=== PATIENT | female | born 1955 | race Two or more races ===

== ENCOUNTER 2020-05-20 10:18 | Outpatient (REF) | payer MEDICARE, MEDICAID, SELFPAY ==
--- NOTE | 2020-05-20 | MM_ITS ---
EXAMINATION: MM SCREENING DIGITAL BREAST TOMOSYNTHESIS, BILATERAL CLINICAL INFORMATION: Screening. Asymptomatic. The lifetime risk of breast cancer based on the Tyrer-Cuzick Model is 6%. COMPARISON: Mammography: 05/15/2019, 03/05/2018, 01/05/2017, 09/02/2015 TECHNIQUE: Digital breast tomosynthesis is performed in both the craniocaudal and mediolateral oblique views along with computer-aided detection (CAD). Synthesized 2D images are generated from the tomosynthesis. Additional left CC view is provided. FINDINGS: There are scattered areas of fibroglandular density (ACR BI-RADS breast composition Category b). Breast tissue composition borders on heterogeneously dense. There is fibronodular parenchymal pattern similar to prior studies. No developing density. No significant mass or architectural abnormality. There are benign-appearing round and coarse calcifications in the bilateral upper outer quadrants, more numerous on left. IMPRESSION: No significant changes from prior studies. ASSESSMENT: BI-RADS 2: Benign RECOMMENDATION: Routine annual mammography screening. This patient's information was entered into a reminder system with a target due date for their next mammogram.
--- NOTE | 2020-05-20 | MM_ITS ---
EXAMINATION: BONE DENSITOMETRY CLINICAL INDICATION: Osteopenia. COMPARISON: Previous BD dated 03/05/2018 and baseline BD dated 06/01/2015. TECHNIQUE: Using a [employer] DXA System (software version: 13.1) manufactured by [employer], dual-energy x-ray absorptiometry was performed of the lumbar spine and left hip. The images are of good technical quality. Summary results are attached. FINDINGS: AP SPINE L1-L4: Current: BMD 0.932 g/cm2, Z-score -0.5, T-score -2.1, osteopenia, 5.8% decrease from previous, 4.5% increase from baseline (<5% change is not significant). Prior: BMD 0.989 g/cm2. Baseline: BMD 0.892 g/cm2. LEFT FEMUR, NECK: Current: BMD 0.760 g/cm2, Z-score -0.6, T-score -2.0, osteopenia. Prior: BMD 0.768 g/cm2. Baseline: BMD 0.765 g/cm2. LEFT FEMUR, TOTAL: Current: BMD 0.865 g/cm2, Z-score 0.0, T-score -1.1, osteopenia, 2.7% decrease from previous, 0.6% decrease from baseline (<5% change is not significant). Prior: BMD 0.889 g/cm2. Baseline: BMD 0.870 g/cm2. IDENTIFIED RISK FACTORS: Menopause. HISTORY OF FRACTURE: None listed. MEDICATIONS: Vitamin D. IMPRESSION: 1. DIAGNOSIS: Osteopenia based on the lowest T-score value of -2.1 in the lumbar spine applying World Health Organization criteria. 2. 10-YEAR FRACTURE RISK PREDICTION, FRAX: Major osteoporotic fracture (clinical spine, forearm, hip or shoulder) 5.9%. Hip fracture 0.9%. 3. Treatment Recommendations: NOF guidelines recommend consideration for treatment in postmenopausal women and men age 50 and older presenting with the following: -A hip or vertebral (clinical or morphometric) fracture. -T-score less than or equal to -2.5 at the femoral neck or spine after appropriate evaluation to exclude secondary causes. -Low bone mass at the hip or spine and a 10-year fracture probability by FRAX of greater than or equal to 3% for hip fracture or greater than or equal to 20% for major osteoporotic fracture based on the [place] adapted WHO algorithm. 4. Other Recommendations: All treatment decisions require clinical judgment and consideration of individual patient factors, including patient preferences, comorbidities, previous drug use, risk factors not captured in the FRAX model (e.g. frailty, falls, vitamin D deficiency, increased bone turnover, interval significant decline in bone density) and possible under or overestimation of fracture risk by FRAX. Additional medical evaluation for secondary cause of low bone mineral density may be appropriate. FUTURE SCAN RECOMMENDATION: People with diagnosed cases of osteoporosis or at high risk for fracture should have regular bone mineral density tests. For patients eligible for Medicare, routine testing is allowed once every 2 years. The testing frequency can be increased to one year for patients who have rapidly progressing disease, those who are receiving or discontinuing medical therapy to restore bone mass, or have additional risk factors.
== END 2020-05-20 10:19 | disposition home or self-care (01) ==
LOC: HO.MAMMO 10:18
PROVIDERS: PCP Internal Medicine; Visit Provider Internal Medicine
DX: Z12.31 Encounter for screening mammogram for malignant neoplasm of breast (principal); Z13.820 Encounter for screening for osteoporosis; M85.852 Other specified disorders of bone density and structure, left thigh; Z78.0 Asymptomatic menopausal state
CPT/HCPCS: 77063; 77067; 77080; 78014

== ENCOUNTER 2020-10-01 08:41 | Outpatient (REF) | payer MEDICARE, MEDICAID, SELFPAY ==
[2020-10-01 11:46] LABS: Alanine Aminotransferase 35 U/L (0-31); Anion Gap 14 (12-20); Aspartate Amino Transferase 26 U/L (5-31); Blood Urea Nitrogen 17 mg/dL (9-16); Calcium 9.8 mg/dL (8.4-10.2); Carbon Dioxide 27 mmol/L (22-29); Chloride 105 mmol/L (96-108); Cholesterol 172 mg/dL; Estimated Glomerular Filt Rate > 60; Glucose Fasting 90 mg/dL (60-99); HDL Cholesterol 56 mg/dL; LDL Cholesterol Calculated 91 mg/dl; Potassium 4.9 mmol/L (3.3-5.1); Sodium 141 mmol/L (135-145); Triglycerides 126 mg/dL
[2020-10-01 12:11] LABS: Vitamin D 25-OH Total 70.5 ng/mL (>30)
== END 2020-10-01 08:42 | disposition home or self-care (01) ==
LOC: HO.HMGCLDS 08:41
PROVIDERS: PCP Internal Medicine; Visit Provider Internal Medicine
DX: E78.2 Mixed hyperlipidemia (principal); J45.20 Mild intermittent asthma, uncomplicated; M85.852 Other specified disorders of bone density and structure, left thigh
CPT/HCPCS: 36415; 80048; 80061; 82306; 84450; 84460

== ENCOUNTER 2021-04-01 08:37 | Outpatient (REF) | payer MEDICARE, MEDICAID, SELFPAY ==
[2021-04-01 12:21] LABS: Vitamin D 25-OH Total 66.8 ng/mL (>30)
[2021-04-01 12:22] LABS: Alanine Aminotransferase 29 U/L (0-31); Aspartate Amino Transferase 24 U/L (5-31); Cholesterol 168 mg/dL; HDL Cholesterol 58 mg/dL; LDL Cholesterol Calculated 95 mg/dl; Triglycerides 77 mg/dL
== END 2021-04-01 08:38 | disposition home or self-care (01) ==
LOC: HO.HMGCLDS 08:37
PROVIDERS: PCP Internal Medicine; Visit Provider Internal Medicine
DX: E78.2 Mixed hyperlipidemia (principal)
CPT/HCPCS: 36415; 80061; 82306; 84450; 84460

== ENCOUNTER 2022-07-19 09:10 | Outpatient (REF) | payer MEDICARE, MEDICAID, SELFPAY ==
[2022-07-19 11:19] LABS: MANUAL DIFF FLAG NO
[2022-07-19 11:33] LABS: Eosinophils Absolute Auto 0.2 X10*3/uL (0.0-0.4); Eosinophils Percent Auto 5.1 % (0-4); Hematocrit 43.5 % (37.0-47.0); Hemoglobin 13.8 g/dl (12.0-16.0); Lymphocytes Absolute Auto 2.3 X10*3/uL (1.2-4.9); Lymphocytes Percent Auto 56.6 % (20-40); Mean Corpuscular HGB Conc 31.7 g/dl (31.0-35.0); Mean Corpuscular Hemoglobin 29.2 pg (27.0-33.0); Mean Corpuscular Volume 92.2 fL (80.0-98.0); Mean Platelet Volume 9.4 fL (9.4-12.3); Monocytes Absolute Auto 0.3 X10*3/uL (0.1-1.2); Monocytes Percent Auto 6.1 % (2-11); Neutrophils Absolute Auto 1.3 x10*3/uL (2.0-8.3); Neutrophils Percent Auto 31.2 % (45-73); Platelet Count 365 X10*3/uL (160-400); Red Blood Count 4.72 X10*6/uL (4.20-5.50); Red Cell Distribution Width 13.5 % (11.0-16.0); White Blood Count 4.1 X10*3/uL (4.8-10.8)
[2022-07-19 12:54] LABS: Alanine Aminotransferase 33 U/L (0-31); Anion Gap 12 (12-20); Aspartate Amino Transferase 24 U/L (5-31); Blood Urea Nitrogen 15 mg/dL (9-16); Calcium 10.2 mg/dL (8.4-10.2); Carbon Dioxide 29 mmol/L (22-29); Chloride 107 mmol/L (96-108); Cholesterol 199 mg/dL; Estimated Glomerular Filt Rate > 60; Glucose Fasting 97 mg/dL (60-99); HDL Cholesterol 57 mg/dL; LDL Cholesterol Calculated 113 mg/dl; Sodium 143 mmol/L (135-145); Triglycerides 148 mg/dL; Vitamin D 25-OH Total 65.9 ng/mL (>30)
== END 2022-07-19 09:11 | disposition home or self-care (01) ==
LOC: HO.HMGCLDS 09:10
PROVIDERS: PCP Internal Medicine; Visit Provider Internal Medicine
DX: E78.2 Mixed hyperlipidemia (principal); K21.9 Gastro-esophageal reflux disease without esophagitis; N95.9 Unspecified menopausal and perimenopausal disorder; J45.20 Mild intermittent asthma, uncomplicated; Z78.0 Asymptomatic menopausal state
CPT/HCPCS: 36415; 80048; 80061; 82306; 84450; 84460; 85025

== ENCOUNTER 2022-08-22 08:27 | Outpatient (REF) | payer MEDICARE, MEDICAID, SELFPAY ==
--- NOTE | ~2022-08-22 | MM_ITS ---
EXAMINATION: MM SCREENING DIGITAL BREAST TOMOSYNTHESIS, BILATERAL CLINICAL INFORMATION: Screening. Asymptomatic. The lifetime risk of breast cancer based on the Tyrer-Cuzick Model is 4.3%. COMPARISON: Mammography: May 20, 2020 and studies dating back to September 02, 2015 TECHNIQUE: Digital breast tomosynthesis is performed in both the craniocaudal and mediolateral oblique views along with computer-aided detection (CAD). Synthesized 2D images are generated from the tomosynthesis. FINDINGS: The breasts are heterogeneously dense, which may obscure small masses (ACR BI-RADS breast composition Category c). There are no new significant masses, abnormal calcifications, or other abnormalities. There is again noted to be multiplicity and bilaterality of calcifications without aggressive change. MM/MM tomosynthesis screening BI IMPRESSION: No significant changes from prior exam. ASSESSMENT: BI-RADS 2: Benign RECOMMENDATION: Routine annual mammography screening. This patient's information was entered into a reminder system with a target due date for their next mammogram.
--- NOTE | ~2022-08-22 | MM_ITS ---
EXAMINATION: BONE DENSITOMETRY CLINICAL INDICATION: Screening. COMPARISON: Previous BD dated 05/20/2020 and baseline BD dated 06/01/2015. TECHNIQUE: Using a [employer] DXA System (software version: 13.1) manufactured by [employer], dual-energy x-ray absorptiometry was performed of the lumbar spine and left hip. The images are of good technical quality. Summary results are attached. FINDINGS: AP SPINE L1-L4: Current: BMD 0.980 g/cm2, Z-score -0.3, T-score -1.7, osteopenia, 5.2% increase from previous, 9.9% increase from baseline (<5% change is not significant). Prior: BMD 0.932 g/cm2. Baseline: BMD 0.892 g/cm2. LEFT FEMUR, NECK: Current: BMD 0.743 g/cm2, Z-score -0.7, T-score -2.1, osteopenia. Prior: BMD 0.760 g/cm2. Baseline: BMD 0.765 g/cm2. LEFT FEMUR, TOTAL: Current: BMD 0.865 g/cm2, Z-score 0.0, T-score -1.1, osteopenia, 0.0% change from previous, 0.6% decrease from baseline (<5% change is not significant). Prior: BMD 0.865 g/cm2. Baseline: BMD 0.870 g/cm2. IDENTIFIED RISK FACTORS: Menopause, anticonvulsant, secondary osteoporosis. HISTORY OF FRACTURE: None listed. MEDICATIONS: Multivitamin, vitamin D. MM/XR DEXA axial skeleton IMPRESSION: 1. DIAGNOSIS: Osteopenia based on the lowest T-score value of -2.1 in the femoral neck applying World Health Organization criteria. 2. 10-YEAR FRACTURE RISK PREDICTION, FRAX: Major osteoporotic fracture (clinical spine, forearm, hip or shoulder) 6.4%. Hip fracture 1.1%. 3. Treatment Recommendations: NOF guidelines recommend consideration for treatment in postmenopausal women and men age 50 and older presenting with the following: -A hip or vertebral (clinical or morphometric) fracture. -T-score less than or equal to -2.5 at the femoral neck or spine after appropriate evaluation to exclude secondary causes. -Low bone mass at the hip or spine and a 10-year fracture probability by FRAX of greater than or equal to 3% for hip fracture or greater than or equal to 20% for major osteoporotic fracture based on the [place] adapted WHO algorithm. 4. Other Recommendations: All treatment decisions require clinical judgment and consideration of individual patient factors, including patient preferences, comorbidities, previous drug use, risk factors not captured in the FRAX model (e.g. frailty, falls, vitamin D deficiency, increased bone turnover, interval significant decline in bone density) and possible under or overestimation of fracture risk by FRAX. Additional medical evaluation for secondary cause of low bone mineral density may be appropriate. FUTURE SCAN RECOMMENDATION: People with diagnosed cases of osteoporosis or at high risk for fracture should have regular bone mineral density tests. For patients eligible for Medicare, routine testing is allowed once every 2 years. The testing frequency can be increased to one year for patients who have rapidly progressing disease, those who are receiving or discontinuing medical therapy to restore bone mass, or have additional risk factors.
== END 2022-08-22 08:28 | disposition home or self-care (01) ==
LOC: HO.MAMMO 08:27
PROVIDERS: PCP Internal Medicine; Visit Provider Internal Medicine
DX: Z12.31 Encounter for screening mammogram for malignant neoplasm of breast (principal); Z13.820 Encounter for screening for osteoporosis; Z78.0 Asymptomatic menopausal state; M85.89 Other specified disorders of bone density and structure, multiple sites
CPT/HCPCS: 77063; 77067; 77080

== ENCOUNTER 2023-01-16 09:11 | Outpatient (REF) | payer MEDICARE, MEDICAID, SELFPAY ==
[2023-01-16 11:21] LABS: MANUAL DIFF FLAG NO
[2023-01-16 11:39] LABS: Basophils Absolute Auto 0.1 X10*3/uL (0.0-0.2); Basophils Percent Auto 1.7 % (0-2); Eosinophils Absolute Auto 0.3 X10*3/uL (0.0-0.4); Eosinophils Percent Auto 6.3 % (0-4); Hematocrit 41.3 % (37.0-47.0); Hemoglobin 13.5 g/dl (12.0-16.0); Imm Gran Abs Auto 0.01 X10*3/uL (0.00-0.03); Imm Gran Pct Auto 0.2 % (0.0-0.4); Lymphocytes Absolute Auto 2.4 X10*3/uL (1.2-4.9); Lymphocytes Percent Auto 57.4 % (20-40); Mean Corpuscular HGB Conc 32.7 g/dl (31.0-35.0); Mean Corpuscular Hemoglobin 29.6 pg (27.0-33.0); Mean Corpuscular Volume 90.6 fL (80.0-98.0); Mean Platelet Volume 9.7 fL (9.4-12.3); Monocytes Absolute Auto 0.3 X10*3/uL (0.1-1.2); Monocytes Percent Auto 6.8 % (2-11); Neutrophils Absolute Auto 1.1 x10*3/uL (2.0-8.3); Neutrophils Percent Auto 27.6 % (45-73); Platelet Count 382 X10*3/uL (160-400); Red Blood Count 4.56 X10*6/uL (4.20-5.50); Red Cell Distribution Width 13.2 % (11.0-16.0); White Blood Count 4.1 X10*3/uL (4.8-10.8)
[2023-01-16 12:06] LABS: Alanine Aminotransferase 28 U/L (0-31); Aspartate Amino Transferase 25 U/L (5-31); Cholesterol 161 mg/dL; HDL Cholesterol 59 mg/dL; LDL Cholesterol Calculated 86 mg/dl; Triglycerides 81 mg/dL
[2023-01-16 12:24] LABS: Vitamin D 25-OH Total 72.1 ng/mL (>30)
== END 2023-01-16 09:12 | disposition home or self-care (01) ==
LOC: HO.HMGCLDS 09:11
PROVIDERS: PCP Internal Medicine; Visit Provider Internal Medicine
DX: K21.9 Gastro-esophageal reflux disease without esophagitis (principal); N95.9 Unspecified menopausal and perimenopausal disorder; M85.89 Other specified disorders of bone density and structure, multiple sites; E78.2 Mixed hyperlipidemia
CPT/HCPCS: 36415; 80061; 82306; 84450; 84460; 85025

== ENCOUNTER 2023-07-10 08:39 | Outpatient (REF) | payer MEDICARE, MEDICAID, SELFPAY ==
[2023-07-10 12:16] LABS: Vitamin D 25-OH Total 93.7 ng/mL (>30)
[2023-07-10 12:19] LABS: Alanine Aminotransferase 28 U/L (0-31); Aspartate Amino Transferase 26 U/L (5-31); Cholesterol 165 mg/dL (<200); Glucose Fasting 94 mg/dL (60-99); HDL Cholesterol 54 mg/dL (>40); LDL Cholesterol Calculated 87 mg/dL (<100); Triglycerides 124 mg/dL (<150)
== END 2023-07-10 08:40 | disposition home or self-care (01) ==
LOC: HO.HMGCLDS 08:39
PROVIDERS: PCP Internal Medicine; Visit Provider Internal Medicine
DX: M85.89 Other specified disorders of bone density and structure, multiple sites (principal); E78.2 Mixed hyperlipidemia
CPT/HCPCS: 36415; 80061; 82306; 82947; 84450; 84460

== ENCOUNTER 2023-07-12 13:27 | Outpatient (AMB) | payer MEDICARE, MEDICAID, SELFPAY ==
--- NOTE | 2023-07-12 13:38 | MHC.PC.OV ---
Vital Signs 07/12/23 13:40 Height 5 ft Weight 157 lb 4 oz BMI 30.7 BP 138/86 Blood Pressure Location Lt brachial Position Sitting Pulse 63 Pulse Source Pulse Oximeter Pulse Oximetry (%) 99 Oxygen Delivery Method Room Air Intake Visit Reasons: 5M Follow up on lipids Intake Note: Pt is here to follow up for her lab results Allergies morphine Allergy (Unknown, Verified 07/12/23 13:43) hives enviromental allergies dust mi Allergy (Unknown, Uncoded 07/12/23 13:48) anaphylaxis enviromental:dust mites and tr Allergy (Unknown, Uncoded 07/12/23 13:43) anaphylaxis Medication List - Last Reconciled 07/12/23 by Tosha Valdez MD albuterol sulfate 90 mcg/actuation (Ventolin HFA) 1 inh inhalation QID PRN atorvastatin 10 mg PO DAILY diclofenac sodium 1% 2 grams transdermal BID PRN epinephrine IM fluticasone propionate 50 mcg/actuation intranasal milnacipran mg PO montelukast mg PO omeprazole mg PO oxybutynin chloride ER mg PO prochlorperazine maleate mg PO Tobacco use date assessed: 07/12/23 Fall risk assessment: No Falls in past year Last assessed Fall Risk: 07/12/23 Dental Screening Dental Screen Date: 07/12/23 Did you have a dental visit in the last 12 months?: Yes Did you have a dental problem in the last 6 months where you did not have access to dental care?: No Was dental information given to patient?: Patient has dentist HPI 5M Follow up on lipids HPI Details [age]-year-old lady with dyslipidemia, here today for her follow-up. She is currently taking atorvastatin 10 mg once a day, and has been compliant with following a low-cholesterol diet and staying active. Her recent fasting labs showed lipids within normal limits, as shown below Triglyceride 124 <150 mg/dL Desirable Triglyceride: less than 150 mg/dL Borderline High Triglyceride 150-199 mg/dL High Triglyceride: 200-499 mg/dL Very High Triglyceride: greater than or equal to 5OO mg/dL Cholesterol 165 <200 mg/dL Desirable Cholesterol: less than 200 mg/dL Borderline High Cholesterol: 200-239 mg/dL High Cholesterol: greater than 239 mg/dL LDL Calculated 87 <100 mg/dL Desirable LDL: less than 100 mg/dL Near Optimal/Above Optimal LDL: 110-129 mg/dL Borderline High LDL: 130-159 mg/dL High LDL: 160-189 mg/dL Very High LDL: greater than or equal to 190 mg/dL HDL 54 >40 mg/dL Desirable HDL: greater than 40 mg/dL [facility] Medical History Osteopenia of multiple sites Tubular adenoma of colon Lumbar disc herniation Mixed dyslipidemia Mild intermittent asthma GERD (gastroesophageal reflux disease) Surgical History History of surgery History of myomectomy History of hand surgery History of tubal ligation History of appendectomy Hx of cholecystectomy Family History Father No problems noted. Mother CVD (cardiovascular disease) Brother No problems noted. Daughter No problems noted. Daughter No problems noted. Sister Stroke Sister Alzheimer's disease Sister Diabetes mellitus Leukemia Sister No problems noted. Sister No problems noted. Sister No problems noted. Sister No problems noted. Social History Housing: House Alcohol intake: never Patient Tobacco Use Status: Never used Tobacco e-Cigarette/Vaping Use: Never Used Second Hand Smoke Exposure: No service: No Current occupational status: retired Cognitive needs: No Hearing needs: No Vision needs: Yes Questionnaire PHQ-9 Over the last 2 weeks, how often have you been bothered by any of the following problems? Depression Screening Interpretation: Negative Depression Screening Done: Yes Source: Developed by Drs. Zach Thurman, Akila Scott, Antony Miller and colleagues, with an educational temitope from [employer]. Thrive Questionnaire Date Thrive assessed: 01/18/23 JOANNE-7 AMB Questionnaire JOANNE-7 Date JOANNE - 7 assessed: 01/18/23 Source: Developed by Drs. Zach Thurman, Akila Scott, Antony Miller and colleagues, with an educational temitope from [employer]. Review of Systems Const Denies body aches, Denies fatigue, Denies fever(s), Denies headache(s) and Denies weakness ENT Denies dizziness, Denies headache(s), Denies nasal congestion, Denies nasal discharge and Denies sore throat Card Denies chest pain, Denies lightheadedness, Denies palpitations and Denies dyspnea Resp Denies chest congestion, Denies cough, Denies dyspnea and Denies wheezing GI Denies abdominal pain, Denies change in bowel habits and Denies heartburn Musc Reports no additional complaints Neuro Denies dizziness, Denies headache(s) and Denies weakness Endo Denies fatigue and Denies palpitations Aller/Immun Denies seasonal rhinorrhea and Denies wheezing Physical exam (Primary Care) Vital Signs: Last Vital Signs Pulse 63 07/12/23 13:40 BP 138/86 07/12/23 13:40 Pulse Ox 99 07/12/23 13:40 Oxygen Delivery Method Room Air 07/12/23 13:40 BMI result Body Mass Index 30.7 Tobacco/Smoking Status: Tobacco use Status Tobacco use date assessed 07/12/23 07/12/23 13:46 Patient Tobacco Use Status Never used Tobacco 07/12/23 13:39 e-Cigarette/Vaping Use Never Used 07/12/23 13:39 Depression Screening Interpretation: Negative Thrive Assessment: Date of Thrive Assessment Date Thrive assessed 01/18/23 07/12/23 13:39 Const General: cooperative, comfortable and no acute distress Orientation/consciousness: patient oriented x3 Limitations: no limitations Neck Neck: Yes full ROM, Yes no lymphadenopathy and Yes supple Resp Effort & Inspection: normal respiratory effort and able to speak in complete sentences Auscultation: clear to auscultation bilaterally Cardio Rate: regular rate Rhythm: regular rhythm Heart sounds: S1 normal heart sound present and S2 normal heart sound present GI Inspection: Yes normal to inspection Palpation (GI): Soft to palpation, nontender and no masses Auscultation: normal bowel sounds Neuro General: patient oriented x3, gait normal, tone normal, moves all extremities, Normal light touch and pain sensation and no focal motor deficits Cognition (Neuro): normal cognition Gait exam (Neuro): Normal gait present Motor exam (neuro): 5/5 motor strength present throughout Extrem General: Yes full ROM, Yes no joint enlargement, Yes no pedal edema, Yes no calf tenderness and Yes normal gait Results Reviewed Results Reviewed: ENTERED: 07/10/23[facility] SAFIA ELAM: ORDERED: Glu Fasting, AST, ALT, Lipid Panel, Vitamin D 25-OH Test Result Flag Reference Site FBS 94 60-99 mg/dL AST (GOT) 26 5-31 U/L ALT (GPT) 28 0-31 U/L Triglyceride 124 <150 mg/dL Desirable Triglyceride: less than 150 mg/dL Borderline High Triglyceride 150-199 mg/dL High Triglyceride: 200-499 mg/dL Very High Triglyceride: greater than or equal to 5OO mg/dL Cholesterol 165 <200 mg/dL Desirable Cholesterol: less than 200 mg/dL Borderline High Cholesterol: 200-239 mg/dL High Cholesterol: greater than 239 mg/dL LDL Calculated 87 <100 mg/dL Desirable LDL: less than 100 mg/dL Near Optimal/Above Optimal LDL: 110-129 mg/dL Borderline High LDL: 130-159 mg/dL High LDL: 160-189 mg/dL Very High LDL: greater than or equal to 190 mg/dL HDL 54 >40 mg/dL Desirable HDL: greater than 40 mg/dL Note: This HDL assay may give artificially low results in patients with liver disease. Vit D 25-OH Tot 93.7 >30 ng/mL Health Based Reference Values* < 20 ng/mL Deficient 20-30 ng/mL Insufficient > 30 ng/mL Sufficient Assessment and Plan Assessment & Plan (1) Mixed dyslipidemia: Code(s): E78.2 - Mixed hyperlipidemia Plan: Fasting lipid results reduced patient which are within normal limits. Will continue on atorvastatin 10 mg daily, and reinforced importance of following a low-cholesterol diet and getting regular exercise. Medications: New epinephrine (EpiPen 2-Demteris) 0.3 mg (0.3 mL) IM Q4H PRN 2 ea 1RF anaphylaxis Coding Level of Care Code Est Pt Level 3 (53284) Diagnoses Mixed dyslipidemia E78.2
[2023-07-12 13:40] VITALS: BP 138/86; PULSE 63; O2SAT 99; BMI 30.7
== END 2023-07-12 15:24 | disposition home or self-care (01) ==
LOC: HO.HMGC 13:27
PROVIDERS: PCP Internal Medicine; Visit Provider Internal Medicine
DX: E78.2 Mixed hyperlipidemia (principal)
CPT/HCPCS: 99213

== ENCOUNTER 2023-08-28 08:55 | Outpatient (REF) | payer MEDICARE, MEDICAID, SELFPAY ==
--- NOTE | ~2023-08-28 | MM_ITS ---
EXAMINATION: MM SCREENING DIGITAL BREAST TOMOSYNTHESIS, BILATERAL CLINICAL INFORMATION: Screening. Asymptomatic. COMPARISON: Mammography: This study is compared with prior exams dating back to 2018. TECHNIQUE: Digital breast tomosynthesis is performed in both the craniocaudal and mediolateral oblique views along with computer-aided detection (CAD). Synthesized 2D images are generated from the tomosynthesis. FINDINGS: There are scattered areas of fibroglandular density (ACR BI-RADS breast composition Category b). There are no significant masses, abnormal calcifications, or other abnormalities. There are unchanged, bilateral, coarse, benign calcifications in each breast. BI-RADS 2 MM/MM tomosynthesis screening BI IMPRESSION: No mammographic evidence of malignancy. ASSESSMENT: BI-RADS BI-RADS 2 - Benign Findings RECOMMENDATION: Routine annual mammography screening. 1 year F/U This examination should not preclude the clinical evaluation of a suspicious palpable abnormality. This patient's information was entered into a reminder system with a target due date for their next mammogram.
== END 2023-08-28 08:56 | disposition home or self-care (01) ==
LOC: HO.MAMMO 08:55
PROVIDERS: PCP Internal Medicine; Visit Provider Internal Medicine
DX: Z12.31 Encounter for screening mammogram for malignant neoplasm of breast (principal)
CPT/HCPCS: 77063; 77067

== ENCOUNTER → 2023-08-28 09:30 | Outpatient (BNV) | payer MEDICARE, MEDICAID, SELFPAY | PROVIDERS: PCP Internal Medicine; Visit Provider Radiology Diagnostic Radiology | DX: Z12.31 Encounter for screening mammogram for malignant neoplasm of breast (principal) | CPT/HCPCS: 77063; 77067 ==

== ENCOUNTER 2024-09-04 09:02 | Outpatient (REF) | payer MEDICARE, MEDICAID, SELFPAY | END 2024-09-04 09:03 | disposition home or self-care (01) | LOC: HO.MAMMO 09:02 | PROVIDERS: PCP Internal Medicine; Visit Provider Internal Medicine | DX: Z12.31 Encounter for screening mammogram for malignant neoplasm of breast (principal) | CPT/HCPCS: 77063; 77067 ==

== ENCOUNTER → 2024-09-04 09:30 | Outpatient (BNV) | payer MEDICARE, MEDICAID, SELFPAY | PROVIDERS: PCP Internal Medicine; Visit Provider Internal Medicine | DX: Z12.31 Encounter for screening mammogram for malignant neoplasm of breast (principal) | CPT/HCPCS: 77063; 77067 ==

== ENCOUNTER 2024-09-08 11:36 | Outpatient (AMB) | payer MEDICARE, MEDICAID, SELFPAY ==
--- NOTE | 2024-09-08 11:30 | A.OFFPC_ITS ---
Vital Signs 09/08/24 11:41 Height 5 ft Weight 153 lb BMI 29.9 BP 120/90 H Blood Pressure Location Rt brachial Position Sitting Respiration 14 Pulse 73 Pulse Source Pulse Oximeter Temp 98.0 F Temp Source Oral Pulse Oximetry (%) 98 Oxygen Delivery Method Room Air Intake Visit Reasons: PE/Secondary covers PE Intake Note: Pt is here today for her PE: Last mammogram 09/04/24, bone density scan 08/22/22, colonoscopy 02/08/21 Allergies morphine Allergy (Unknown, Verified 09/08/24 11:52) hives enviromental allergies dust mi Allergy (Unknown, Uncoded 09/08/24 11:52) anaphylaxis enviromental:dust mites and tr Allergy (Unknown, Uncoded 09/08/24 11:52) anaphylaxis Medication List - Last Reconciled 09/08/24 by Tosha Valdez MD albuterol sulfate 90 mcg/actuation (Ventolin HFA) 1 inh inhalation QID PRN atorvastatin 10 mg PO DAILY diclofenac sodium 1% 2 grams transdermal BID PRN epinephrine (EpiPen 2-Demetris) 0.3 mg (0.3 mL) IM Q4H PRN fluticasone propionate 50 mcg/actuation intranasal milnacipran mg PO montelukast mg PO omeprazole mg PO oxybutynin chloride ER mg PO prochlorperazine maleate mg PO Tobacco use date assessed: 09/08/24 Fall risk assessment: 1 Fall in past year Last assessed Fall Risk: 09/08/24 Dental Screening Dental Screen Date: 09/08/24 Did you have a dental visit in the last 12 months?: Yes Did you have a dental problem in the last 6 months where you did not have access to dental care?: No Was dental information given to patient?: Patient has dentist HPI PE/Secondary covers PE HPI Details 68-year-old lady here today for her phys ical exam. She is up-to-date with her breast cancer screening, with last mammogram done 09/04/2024 with results still pending. A bone density scan was done 08/22/2022 which showed osteopenia in lumbar spine, left femoral neck and left femur, with improvement noted. A screening colonoscopy was done 02/08/[address] Jones with diverticulosis seen, repeat colonoscopy due again in 2026 due to history of colonic polyps She has dyslipidemia currently on atorvastatin 10 mg daily, due for recheck on her lipids. Mild intermittent asthma controlled with albuterol inhaler as needed and takes montelukast 10 mg daily. Heartburn symptoms controlled with omeprazole Has urinary stress incontinence, takes oxybutynin chloride She was being seen by Dr. Waldemar perez She was being seen by Dr. Mann, who has been treating her for fibromyalgia a nd headaches , controlled with Savella Has tried Lyrica and Cymbalta in the past, Flexeril was not covered but baclofen has been helping. Has had physical therapy which helped , but was unable to complete, uses hot packs on her neck which helps slightly. Continues to get headaches left greater than right , mainly in her temples and top of the head, sometimes accompanied by nausea and dizziness. She is requesting to be referred to a new neurologist as her previous 1 has retired FOR[facility]LY [facility] Medical History (Updated 09/14/24 @ 21:55 by Tosha Valdez MD) Environmental and seasonal allergies Headache Myalgia Osteopenia of multiple sites Tubular adenoma of colon Lumbar disc herniation Mixed dyslipidemia Mild intermittent asthma GERD (gastroesophageal reflux disease) Surgical History History of surgery History of myomectomy History of hand surgery History of tubal ligation History of appendectomy Hx of cholecystectomy Family History Father No problems noted. Mother CVD (cardiovascular disease) Brother No problems noted. Daughter No problems noted. Daughter No problems noted. Sister Stroke Sister Alzheimer's disease Sister Diabetes mellitus Leukemia Sister No problems noted. Sister No problems noted. Sister No problems noted. Sister No problems noted. Social History Housing: House Alcohol intake: never Patient Tobacco Use Status: Never used Tobacco e-Cigarette/Vaping Use: Never Used Second Hand Smoke Exposure: No service: No Current occupational status: retired Cognitive needs: No Hearing needs: No Vision needs: Yes Questionnaire PHQ-9 Over the last 2 weeks, how often have you been bothered by any of the following problems? 1. Little interest or pleasure in doing things: not at all 2. Feeling down, depressed, or hopeless: not at all 3. Trouble falling or staying asleep, or sleeping too much: not at all 4. Feeling tired or having little energy: not at all 5. Poor appetite or overeating: not at all 6. Feeling bad about yourself - or that you are a failure or have let yourself or your family down: not at all 7. Trouble concentrating on things, such as reading the newspaper or watching television: not at all 8. Moving or speaking so slowly that other people could have noticed. Or the opposite - being so fidgety or restless that you have been moving around a lot more than usual: not at all 9. Thoughts that you would be better off or of hurting yourself in some way: not at all Total score: 0 Depression Screening Interpretation: Negative Depression Screening Done: Yes 62600 - PHQ-9 Billing: Yes Source: Developed by Drs. Zach Thurman, Akila Scott, Antony Miller and colleagues, with an educational temitope from [employer]. Thrive Questionnaire Date Thrive assessed: 09/08/24 I am a: Patient What is your living situation today?: I have a steady place to live Within the past 12 months, did the food you bought not last and you didn't have the money to get more?: Never true Within the past 12 months, did you worry whether your food would run out before you got money to buy more?: Never true Do you have trouble paying for medicines?: No Do you have trouble getting transportation to medical appointments?: No Do you have trouble paying your heating and electricity bill?: No Do you have trouble taking care of your child, family member or friend?: No Do you have trouble with day-to-day activities such as bathing, preparing meals, shopping, managing finances, etc.?: No Are you currently unemployed and looking for a job?: No Are you interested in more education?: No THRIVE Score: 0 JOANNE-7 AMB Questionnaire JOANNE-7 Date JOANNE - 7 assessed: 09/08/24 Feeling nervous, anxious, or on edge: 0 = Not at all Not being able to stop or control worryin = Not at all Worrying too much about different things: 0 = Not at all Trouble relaxin = Not at all Being so restless that it is hard to sit still: 0 = Not at all Becoming easily annoyed or irritable: 0 = Not at all Feeling afraid as if something awful might happen: 0 = Not at all Total JOANNE-7 score (0-4 normal; 5-9 mild; 10-14 moderate; 15-21 severe): 0 Source: Developed by Drs. Zach Thurman, Akila Scott, Antony Miller and colleagues, with an educational temitope from [employer]. JOANNE-7 Assessment Billing JOANNE-7 Assessment Tool: JOANNE-7 Assessment 46988 Review of Systems Const Denies body aches, Denies fatigue, Denies fever(s) and Denies weakness Eyes Details: overdue for eye exam ENT Details: dental prophylaxis every 6 months Denies nasal congestion, Denies nasal discharge and Denies sore throat Card Denies chest pain, Denies syncope, Denies lightheadedness, Denies palpitations and Denies dyspnea Resp Denies chest congestion, Denies cough, Denies dyspnea and Denies wheezing GI Denies abdominal pain, Denies change in bowel habits and Denies heartburn Reports no additional complaints Musc Reports no additional complaints Skin/Breast Denies breast pain, Denies breast mass, Denies lesions and Denies rash Neuro Reports as per HPI, Denies syncope, Denies seizure-like activity and Denies weakness Psych Reports no additional complaints Endo Denies fatigue and Denies palpitations Osvaldo/Lymph Reports no additional complaints Aller/Immun Denies seasonal rhinorrhea and Denies wheezing Physical exam (Primary Care) Vital Signs: Last Vital Signs Temp 98.0 F 09/08/24 11:41 Pulse 73 09/08/24 11:41 Resp 14 09/08/24 11:41 BP 120/90 H 09/08/24 11:41 Pulse Ox 98 09/08/24 11:41 Oxygen Delivery Method Room Air 09/08/24 11:41 BMI result Body Mass Index 29.9 Tobacco/Smoking Status: Tobacco use Status Tobacco use date assessed 09/08/24 09/08/24 11:32 Patient Tobacco Use Status Never used Tobacco 09/08/24 11:32 e-Cigarette/Vaping Use Never Used 09/08/24 11:32 Depression Screening Interpretation: Negative Thrive Assessment: Date of Thrive Assessment Date Thrive assessed 09/08/24 09/08/24 11:32 Advance Care Planning discussion: Completed/Scanned Date of discussion: 09/08/24 Who was present: Patient Forms completed: Health Care Proxy and MOLST Time spent: 16-45 minutes Actual minutes spent: 3 Const General: cooperative, comfortable and no acute distress Orientation/consciousness: patient oriented x3 Limitations: no limitations HENMT Head: Yes normocephalic Ears: external ears normal General nose exam: Normal external nose present Face and sinus: Yes face symmetric Mouth: Normal oral and palatal mucosa present and moist mucous membranes Eyes General: appearance normal, both eyes and all related structures Neck Neck: Yes full ROM, Yes no lymphadenopathy and Yes supple Chest Breast/axilla palpation: normal palpation of the breasts Resp Effort & Inspection: normal respiratory effort and able to speak in complete sentences Auscultation: clear to auscultation bilaterally Cardio Rate: regular rate Rhythm: regular rhythm Heart sounds: S1 normal heart sound present and S2 normal heart sound present GI Inspection: Yes normal to inspection Palpation (GI): Soft to palpation and nontender Auscultation: normal bowel sounds General: Yes no CVA tenderness Back/Spine/Pelvis Back: no CVA tenderness and No back tenderness Skin General skin exam: no rashes or lesions noted Neuro General: patient oriented x3, gait normal, tone normal, moves all extremities, Normal light touch and pain sensation and no focal motor deficits Cognition (Neuro): normal cognition Gait exam (Neuro): Normal gait present Motor exam (neuro): 5/5 motor strength present throughout Extrem General: Yes full ROM, Yes no joint enlargement, Yes no pedal edema, Yes no calf tenderness and Yes normal gait Psych Appearance: grossly normal and well kempt Mental Status: mental status grossly normal Speech and movement: Normal speech and movement present Affect: normal affect Coding Level of Care Code Est Pt Prev Care >65y(58679) Diagnoses Annual visit for general adult medical examination with abnormal findings Z00.01 Osteopenia of multiple sites M85.89 GERD (gastroesophageal reflux disease) K21.9 Mild intermittent asthma J45.20 Mixed dyslipidemia E78.2 Encounter for counseling regarding advance directives Z71.89 Myalgia M79.10 Headache R51.9 Headache type: unspecified Additional Codes PHQ-9 - 13688 - PHQ-9 Billing: Yes ([id number]) JOANNE-7 Assessment Billing - JOANNE-7 Assessment Tool: JOANNE-7 Assessment 85345 ([id number]) Vital Signs *Quality* - Advance Care Planning discussion: Completed/Scanned ([id number]) Vital Signs *Quality* - Time spent: 16-45 minutes ([id number]) Assessment & Plan Assessment & Plan (1) Annual visit for general adult medical examination with abnormal findings: Code(s): Z00.01 - Encounter for general adult medical examination with abnormal findings Plan: Will check appropriate labs. Recommended dental visit every 6 months and regular eye exams, at least every 2 years. Take adequate calcium in diet and vitamin-D 3 at 2000 IU per cap once a day, in addition to weight-bearing exercises to help maintain good muscle tone and weight control. Instructed to do self-breast exam, and continue to get yearly mammogram, bone density scan ordered today. Due for repeat colonoscopy again in [address] Jones. Up-to-date with her vaccination but does not want to get a COVID booster. (2) Osteopenia of multiple sites: Code(s): M85.89 - Other specified disorders of bone density and structure, multiple sites Category: Medical Plan: Bone density scan ordered, continue taking vitamin-D 3 iftb-elf-pmdoxya 2000 units daily and encouraged to do regular weight-bearing exercises. (3) GERD (gastroesophageal reflux disease): Code(s): K21.9 - Gastro-esophageal reflux disease without esophagitis Category: Medical Plan: Sees Dr. Jones currently taking omeprazole (4) Mild intermittent asthma: Code(s): J45.20 - Mild intermittent asthma, uncomplicated Category: Medical Plan: Currently being followed by DR Briseno, uses albuterol inhaler as needed and is currently on montelukast 10 mg daily (5) Mixed dyslipidemia: Code(s): E78.2 - Mixed hyperlipidemia Category: Medical Plan: Fasting lipid panel ordered, continue atorvastatin 10 mg daily (6) Encounter for counseling regarding advance directives: Code(s): Z71.89 - Other specified counseling Plan: Initiated the conversation about Advanced Directives. Advanced Directives help patients prepare for current and future decisions about their medical treatment and place of care. Discussed with patient that it is a process where a patients current condition and prognosis are reviewed, their wishes for information regarding their illness are elicited, and likely medical dilemmas are presented and options discussed. MOLST and healthcare proxy form completed. These forms can be amended as needed, reviewed yearly and make changes as needed (7) Myalgia: Code(s): M79.10 - Myalgia, unspecified site Category: Medical Plan: Requesting referral to see a new neurologist, currently on Savella (8) Headache: Code(s): R51.9 - Headache, unspecified Category: Medical Qualifiers: Headache type: unspecified Plan: Patient requesting referral to a new neurologist as her previous one, Dr. Mann has retired. Currently on Savella/milnaciparan Orders: Orders Vitamin D 25-OH Total 09/08/24 E78.2 - Mixed hyperlipidemia, K21.9 - Gastro- esophageal reflux disease without esophagitis, M85.89 - Other specified disorders of bone density and structure, multiple sites, Z00.01 - Encounter for general adult medical examination with abnormal findings, Z71.89 - Other specified counseling Lipid Panel 09/08/24 E78.2 - Mixed hyperlipidemia, K21.9 - Gastro-esophageal reflux disease without esophagitis, M85.89 - Other specified disorders of bone density and structure, multiple sites, Z00.01 - Encounter for general adult medical examination with abnormal findings, Z71.89 - Other specified counseling Basic Metabolic Panel Fasting 09/08/24 E78.2 - Mixed hyperlipidemia, K21.9 - Gastro-esophageal reflux disease without esophagitis, M85.89 - Other specified disorders of bone density and structure, multiple sites, Z00.01 - Encounter for general adult medical examination with abnormal findings, Z71.89 - Other specified counseling Aspartate Amino Transferase 09/08/24 E78.2 - Mixed hyperlipidemia, K21.9 - Gastro-esophageal reflux disease without esophagitis, M85.89 - Other specified disorders of bone density and structure, multiple sites, Z00.01 - Encounter for general adult medical examination with abnormal findings, Z71.89 - Other specified counseling Alanine Aminotransferase 09/08/24 E78.2 - Mixed hyperlipidemia, K21.9 - Gastro- esophageal reflux disease without esophagitis, M85.89 - Other specified disorders of bone density and structure, multiple sites, Z00.01 - Encounter for general adult medical examination with abnormal findings, Z71.89 - Other specified counseling XR DEXA axial skeleton 09/08/24 M85.89 - Other specified disorders of bone density and structure, multiple sites Referrals Neurology Referral M79.10 - Myalgia, unspecified site, R51.9 - Headache, unspecified Medications: Refilled albuterol sulfate 90 mcg/actuation (Ventolin HFA) 1 inh inhalation QID PRN 8.5 grams 1RF shortness of breath or wheezing atorvastatin 10 mg PO DAILY 90 tabs 1RF epinephrine (EpiPen 2-Demetris) 0.3 mg (0.3 mL) IM Q4H PRN 2 ea 1RF anaphylaxis
[2024-09-08 11:41] VITALS: BP 120/90; PULSE 73; RESP 14; TEMP 36.7; O2SAT 98; BMI 29.9
== END 2024-09-08 12:59 | disposition home or self-care (01) ==
PROVIDERS: PCP Internal Medicine; Visit Provider Internal Medicine
DX: Z00.00 Encounter for general adult medical examination without abnormal findings (principal); M85.89 Other specified disorders of bone density and structure, multiple sites; Z68.29 Body mass index [BMI] 29.0-29.9, adult; K21.9 Gastro-esophageal reflux disease without esophagitis; J45.20 Mild intermittent asthma, uncomplicated; E78.2 Mixed hyperlipidemia; Z71.89 Other specified counseling; M79.10 Myalgia, unspecified site; R51.9 Headache, unspecified

== ENCOUNTER → 2024-09-08 11:36 | Outpatient (BNVA) | payer MEDICARE, MEDICAID, SELFPAY | PROVIDERS: PCP Internal Medicine; Visit Provider Internal Medicine | DX: Z00.01 Encounter for general adult medical examination with abnormal findings (principal); M79.7 Fibromyalgia; M85.89 Other specified disorders of bone density and structure, multiple sites; K21.9 Gastro-esophageal reflux disease without esophagitis; J45.20 Mild intermittent asthma, uncomplicated; E78.2 Mixed hyperlipidemia; M79.10 Myalgia, unspecified site; R51.9 Headache, unspecified; Z71.89 Other specified counseling | CPT/HCPCS: 96127; 99397 ==

== ENCOUNTER 2024-09-24 11:16 | Outpatient (REF) | payer MEDICARE, MEDICAID, SELFPAY ==
--- NOTE | ~2024-09-24 | MM_ITS ---
EXAMINATION: MM DIAGNOSTIC DIGITAL MAMMOGRAPHY, LEFT CLINICAL INFORMATION: Call back from screening for increased left breast calcifications. COMPARISON: Mammography: Comparison is made with available prior examinations. TECHNIQUE: Digital mammography is performed in craniocaudal and mediolateral oblique views along with computer-aided detection (CAD). FINDINGS: There are scattered areas of fibroglandular density (ACR BI-RADS breast composition Category b). Grouped coarse heterogeneous calcifications in the upper outer breast and lower outer breast are increased from priors. No suspicious masses or other abnormal findings. Results are discussed with the patient at time of visit. MM/MM added views LT IMPRESSION: Grouped coarse heterogeneous calcifications in the upper outer quadrant and lower outer quadrant increased from priors. Recommend stereotactic core needle biopsy at this time for confirmation. The findings and recommendations were discussed with the patient the procedure was scheduled. Additional central to lower outer calcifications if not biopsied at the same time as the upper outer calcifications, recommendations will be made pending pathology of the above calcifications. ASSESSMENT: BI-RADS BI-RADS 4 - Suspicious finding RECOMMENDATION: Biopsy recommended This patient's information was entered into a reminder system with a target due date for their next mammogram. Electronically signed by: Stefani Price DO 09/24/2024 12:10 PM ELANA
== END 2024-09-24 11:17 | disposition home or self-care (01) ==
LOC: HO.MAMMO 11:16
PROVIDERS: PCP Internal Medicine; Visit Provider Internal Medicine
DX: R92.1 Mammographic calcification found on diagnostic imaging of breast (principal)
CPT/HCPCS: 77065

== ENCOUNTER → 2024-09-24 11:30 | Outpatient (BNV) | payer MEDICARE, MEDICAID, SELFPAY | PROVIDERS: PCP Internal Medicine; Visit Provider Internal Medicine | DX: R92.1 Mammographic calcification found on diagnostic imaging of breast (principal) | CPT/HCPCS: 77065 ==

== ENCOUNTER 2024-10-29 08:20 | Outpatient (AMB) | payer MEDICARE, MEDICAID, SELFPAY ==
--- NOTE | 2024-10-29 08:28 | A.OFFVIS_ITS ---
Vital Signs 10/29/24 08:37 Height 5 ft Weight 142 lb 13.753 oz BMI 27.9 Intake Visit Reasons: Stereo Bx LT breast UOQ cals Intake Note: This patient presents for Stereo Biopsy consult for Left breast upper outer quadrant calcifications. Pt c/o; Bx booked 10/29/2024 @10am, reports she had one episode of nipple discharge in the past, reports occasional throbbing pain. 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 She had a mammogram for screening last August, and this showed grouped coarse heterogenous calcifications in the upper outer quadrant and lower outer quadrant which have increased from her previous mammograms. These were seen again on her targeted diagnostic mammogram last month. A stereotactic biopsy was therefore recommended. Her menarche was at age of 11. She had to pregnancies. Her 1st was age of 19. She had menopause in her 50s. She denies knowledge of any breast cancer in her family. FOR[facility]LY [facility] Medical History (Updated 10/28/24 @ 11:38 by Nagi Alas MD) Breast calcification, left Environmental and seasonal allergies Headache Myalgia Osteopenia of multiple sites Tubular adenoma of colon Lumbar disc herniation Mixed dyslipidemia Mild intermittent asthma GERD (gastroesophageal reflux disease) Surgical History History of surgery History of myomectomy History of hand surgery History of tubal ligation History of appendectomy Hx of cholecystectomy Family History Father No problems noted. Mother CVD (cardiovascular disease) Brother No problems noted. Daughter No problems noted. Daughter No problems noted. Sister Stroke Sister Alzheimer's disease Sister Diabetes mellitus Leukemia Sister No problems noted. Sister No problems noted. Sister No problems noted. Sister No problems noted. Social History Housing: House Alcohol intake: never Patient Tobacco Use Status: Never used Tobacco e-Cigarette/Vaping Use: Never Used Second Hand Smoke Exposure: No service: No Current occupational status: retired Cognitive needs: No Hearing needs: No Vision needs: Yes Female Reproductive History Menstrual Age of Menarche: 11 Total pregnancies: 2 Review of Systems Const Denies chills and Denies fever(s) Card Denies chest pain, Denies dyspnea and Denies dyspnea on exertion Resp Denies cough, Denies dyspnea and Denies dyspnea on exertion GI Denies hematochezia and Denies change in bowel habits Denies hematuria Musc Denies back pain and Denies limited range of motion Neuro Denies focal weakness and Denies convulsions Psych Denies depression and Denies mood swings Physical Exam Const General: comfortable and no acute distress Orientation/consciousness: patient oriented x3 Neck Neck: Yes no lymphadenopathy Chest Other: No palpable breast masses, no axillary lymphadenopathy, no nipple or skin changes Resp Auscultation: clear to auscultation bilaterally Cardio Rhythm: regular rhythm GI Palpation (GI): Soft to palpation, nontender and no guarding Neuro General: patient oriented x3 Assessment & Plan Assessment & Plan (1) Breast calcification, left: Code(s): R92.1 - Mammographic calcification found on diagnostic imaging of breast Category: Medical Plan: She has increasing calcifications on the left breast seen on her mammogram studies. A stereotactic biopsy was therefore recommended. I explained to her the technique of this procedure. I will see her again in the office next week to discuss the path report. Orders: Orders MM stereotactic biopsy LT 10/28/24 R92.1 - Mammographic calcification found on diagnostic imaging of breast Coding Level of Care Code New Pt Level 3 (85508) Diagnoses Breast calcification, left R92.1
[2024-10-29 08:37] VITALS: BMI 27.9
== END 2024-10-29 08:48 | disposition home or self-care (01) ==
LOC: HO.HGS 08:20
PROVIDERS: PCP Internal Medicine; Visit Provider Surgery
DX: R92.1 Mammographic calcification found on diagnostic imaging of breast (principal)
CPT/HCPCS: 99203

== ENCOUNTER 2024-10-29 08:54 | Outpatient (REF) | payer MEDICARE, MEDICAID, SELFPAY ==
--- NOTE | ~2024-10-29 | MM_ITS ---
EXAMINATION: STEREOTACTICALLY-GUIDED LEFT BREAST BIOPSY CLINICAL INFORMATION: Increasing grouped calcifications in the lower outer and upper outer left breast. COMPARISON: priors on PACS INFORMED CONSENT: After the details of the procedure, as well as the risks (including, but not limited to, bleeding, hematoma formation, and infection), benefits and alternatives (including doing nothing, short-interval follow up, and surgery) to the procedure were explained to the patient in detail and all of her questions were answered, informed written consent was obtained. TECHNIQUE/FINDINGS: A timeout was performed. The lesion intended for biopsy was identified stereotactically and targeted. The skin of the left breast was then cleansed with sterile solution. Using stereotactic guidance, aseptic technique, and 1% lidocaine with and without epinephrine for local anesthesia, a total of 12 cores were obtained through the targeted area with a 9-gauge vacuum-assisted Eviva core biopsy device from a superior approach. Specimen radiography reveals the targeted calcifications in the sampled tissue. At the completion of tissue sampling, a single cork-shaped metallic clip was deposited at the biopsy site. Adequate sampling was achieved. The postprocedure 2-view direct digital mammogram reveals satisfactory positioning of the biopsy clip. The patient tolerated the procedure well and, after assuring adequate hemostasis, was discharged in good condition after reviewing postbiopsy breast care instructions. Final pathology results are pending. MM/MM stereotactic biopsy LT IMPRESSION: 1. Uncomplicated stereotactically-guided core biopsy of the left breast. The 2-view direct digital postprocedure mammogram reveals satisfactory positioning of the biopsy clip. 2. Final pathology results are pending. A separate report with final recommendations will be issued once these results are made available. 3. Management for the other areas of calcifications will be pending pathology to include a six-month follow-up magnification views. Electronically signed by: Stefani Price DO 10/29/2024 10:43 AM EDT
[2024-10-29] MEDS: Lidocaine HCl 1 % 20 ML VIAL 10 ML SUBCUT (09:59)
[2024-10-29] MEDS: Sodium Bicarbonate 8.4% 50 MEQ/50 ML VIAL SUBCUT (10:11)
[2024-10-29] MEDS: Lidocaine HCl 1 % 20 ML VIAL 4 ML SUBCUT (10:15)
== END 2024-10-29 08:55 | disposition home or self-care (01) ==
LOC: HO.MAMMO 08:54
PROVIDERS: PCP Internal Medicine; Visit Provider Surgery
DX: R92.1 Mammographic calcification found on diagnostic imaging of breast (principal); D24.2 Benign neoplasm of left breast
CPT/HCPCS: 19081; 88305; 99202; A4648; J2003; J2004

== ENCOUNTER → 2024-10-29 10:00 | Outpatient (BNV) | payer MEDICARE, MEDICAID, SELFPAY | PROVIDERS: PCP Internal Medicine; Visit Provider Internal Medicine | DX: R92.1 Mammographic calcification found on diagnostic imaging of breast (principal) | CPT/HCPCS: 19081; 77065 ==

== ENCOUNTER 2024-11-06 10:34 | Outpatient (AMB) | payer MEDICARE, MEDICAID, SELFPAY ==
--- NOTE | 2024-11-06 10:43 | A.OFFVIS_ITS ---
Intake Visit Reasons: s/p Stereo Bx LT breast UOQ cals 10/29 Intake Note: Patient here s/p Lt br st bx on 10-29-2024. Reports site healing well. 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 Equipment Required: No Accompanied by: daughter Shilpa Allergies morphine Allergy (Unknown, Verified 11/06/24 10:55) hives enviromental allergies dust mi Allergy (Unknown, Uncoded 11/06/24 10:55) anaphylaxis enviromental:dust mites and tr Allergy (Unknown, Uncoded 11/06/24 10:55) anaphylaxis Medication List - Last Reconciled 11/06/24 by Nagi Alas MD albuterol sulfate 90 mcg/actuation (Ventolin HFA) 1 inh inhalation QID PRN atorvastatin 10 mg PO DAILY diclofenac sodium 1% 2 grams transdermal BID PRN epinephrine (EpiPen 2-Demetris) 0.3 mg (0.3 mL) IM Q4H PRN fluticasone propionate 50 mcg/actuation intranasal milnacipran mg PO montelukast mg PO omeprazole mg PO oxybutynin chloride ER mg PO prochlorperazine maleate mg PO HPI HPI s/p Stereo Bx LT breast UOQ cals 10/29: Details: She is here for a follow-up after stereotactic biopsy of the left breast for suki cifications last 10/29/2024. She says he tolerated the procedure well and currently denies significant complaints. [facility] Medical History Breast calcification, left Environmental and seasonal allergies Headache Myalgia Osteopenia of multiple sites Tubular adenoma of colon Lumbar disc herniation Mixed dyslipidemia Mild intermittent asthma GERD (gastroesophageal reflux disease) Surgical History History of surgery History of myomectomy History of hand surgery History of tubal ligation History of appendectomy Hx of cholecystectomy Family History Father No problems noted. Mother CVD (cardiovascular disease) Brother No problems noted. Daughter No problems noted. Daughter No problems noted. Sister Stroke Sister Alzheimer's disease Sister Diabetes mellitus Leukemia Sister No problems noted. Sister No problems noted. Sister No problems noted. Sister No problems noted. Social History Housing: House Alcohol intake: never Patient Tobacco Use Status: Never used Tobacco e-Cigarette/Vaping Use: Never Used Second Hand Smoke Exposure: No service: No Current occupational status: retired Cognitive needs: No Hearing needs: No Vision needs: Yes Female Reproductive History Menstrual Age of Menarche: 11 Review of Systems Const Denies chills and Denies fever(s) Card Denies chest pain, Denies dyspnea and Denies dyspnea on exertion Resp Denies cough, Denies dyspnea and Denies dyspnea on exertion GI Denies hematochezia and Denies change in bowel habits Denies hematuria Musc Denies back pain and Denies limited range of motion Neuro Denies focal weakness and Denies convulsions Psych Denies depression and Denies mood swings Physical Exam Const General: comfortable and no acute distress Chest Other: No hematoma on biopsy site Resp Effort & Inspection: normal respiratory effort Assessment & Plan Assessment & Plan (1) Breast calcification, left: Code(s): R92.1 - Mammographic calcification found on diagnostic imaging of breast Category: Medical Plan: Status post stereotactic biopsy. Her path report shows fibroadenomatous change with hyalinized fibrosis and calcifications. There is no evidence of malignancy. I explained to her the benign nature of this pathology. This seems to be concordant with the initial mammogram. The radiologist has recommended a follow-up mammogram in about 6 months. Coding Level of Care Code Est Pt Level 2 (93792) Diagnoses Breast calcification, left R92.1
== END 2024-11-06 10:59 | disposition home or self-care (01) ==
LOC: HO.HGS 10:35
PROVIDERS: PCP Internal Medicine; Visit Provider Surgery
DX: R92.1 Mammographic calcification found on diagnostic imaging of breast (principal)
CPT/HCPCS: 99212

== ENCOUNTER → 2024-11-06 10:34 | Outpatient (BNVA) | payer MEDICARE, MEDICAID, SELFPAY | PROVIDERS: PCP Internal Medicine; Visit Provider Surgery | DX: R92.1 Mammographic calcification found on diagnostic imaging of breast (principal) | CPT/HCPCS: 99212 ==

== ENCOUNTER 2024-11-07 09:57 | Outpatient (REF) | payer MEDICARE, MEDICAID, SELFPAY ==
[2024-11-07 13:54] LABS: Alanine Aminotransferase 35 U/L (0-31); Anion Gap 12 (12-20); Aspartate Amino Transferase 35 U/L (5-31); Blood Urea Nitrogen 14 mg/dL (9-16); Calcium 10.1 mg/dL (8.4-10.2); Carbon Dioxide 27 mmol/L (22-29); Chloride 107 mmol/L (96-108); Cholesterol 142 mg/dL (<200); Estimated Glomerular Filt Rate > 60; Glucose Fasting 88 mg/dL (60-99); HDL Cholesterol 52 mg/dL (>40); LDL Cholesterol Calculated 70 mg/dL (<100); Potassium 4.5 mmol/L (3.3-5.1); Sodium 141 mmol/L (135-145); Triglycerides 103 mg/dL (<150)
[2024-11-07 14:39] LABS: Vitamin D 25-OH Total 73.1 ng/mL (>30)
== END 2024-11-07 09:58 | disposition home or self-care (01) ==
LOC: HO.HMGCLDS 09:57
PROVIDERS: PCP Internal Medicine; Visit Provider Internal Medicine
DX: Z00.01 Encounter for general adult medical examination with abnormal findings (principal); K21.9 Gastro-esophageal reflux disease without esophagitis; M85.89 Other specified disorders of bone density and structure, multiple sites; E78.2 Mixed hyperlipidemia; Z71.89 Other specified counseling
CPT/HCPCS: 36415; 80048; 80061; 82306; 84450; 84460

== ENCOUNTER 2025-03-09 08:37 | Outpatient (REF) | payer MEDICARE, MEDICAID, SELFPAY ==
--- OUTSIDE RECORDS SUMMARY | 2025-03-09 08:59 | XMS_ITS | Clinical Summary ---
Author Organization [address] [facility] Address [address] [place] [address] Phone Care Team Providers Care City Detective Name Role Phone Tosha Valdez MD Primary Care Provider [phone] Allergies Active Allergy Reactions Criticality Noted Date Comments Morphine Rash 02/23/2025 Medications omeprazole (PriLOSEC) [address] capsuleIndication s:GERD (gastroesophageal reflux disease) TAKE 1 CAPSULE BY MOUTH EVERY DAY 90 capsule 3 5 Active Ventolin HFA 90 mcg/actuation inhaler Inhale 2 puffs by mouth 3 (three) times a day. 5 Active atorvastatin (LIPITOR) 10 mg tablet Take 1 tablet (10 mg total) by mouth 1 (one) time each day. 5 Active oxyBUTYnin XL (DITROPAN-XL) 10 mg 24 hr tablet Take 1 tablet (10 mg total) by mouth 1 (one) time each day. 5 Active minocycline (MINOCIN,DYNACIN) 100 mg capsule Take 1 capsule (100 mg total) by mouth 2 (two) times a day for 7 days. 14 each 5 02/20/20 25 predniSONE (DELTASONE) 10 mg tabletIndications :COPD exacerbation,asth ma exacerbation Take 4 tablets (40 mg total) by mouth 1 (one) time each day for 3 days, THEN 3 tablets (30 mg total) 1 (one) time each day for 3 days, THEN 2 tablets (20 mg total) 1 (one) time each day for 3 days, THEN 1 tablet (10 mg total) 1 (one) time each day for 3 days. 30 each 02/25/20 25 Active Problems Problem Noted Date Diagnosed Date Cough 02/11/2025 URI (upper respiratory infection) 02/11/2025 Encounters Date Type Department Care Team Description 03/03/2025 9:00 AM EDT Ancillary Procedure Pul[address] [phone] Moderate asthma, unspecified whether complicated, unspecified whether persistent 02/23/2025 9:30 AM EDT [facility] [address] [phone] Isi Flores MD Moderate asthma, unspecified whether complicated, unspecified whether persistent (Primary Dx) 02/12/2025 2:30 PM EDT Office Visit Pul[address] [phone] Isi Flores MD Upper respiratory tract infection, unspecified type (Primary Dx); Bronchitis; Moderate asthma, unspecified whether complicated, unspecified whether persistent from Last 3 Months Social History Tobacco Use Types Packs/Day Years Used Date Smoking Tobacco: Never Passive Smoke Exposure: Never Smokeless Tobacco: Never Comments Unknown Sex and Gender Information Value Date Recorded Sex Assigned at Not on file Legal Sex Female 5:43 AM EST Gender Identity Not on file Sexual Orientation Not on file Obstetrics History Last Filed Vital Signs Vital Sign Reading Time Taken Comments Blood Pressure 124/78 02/23/2025 9:20 AM EDT Pulse 62 02/23/2025 9:20 AM EDT Temperature 35.6 C (96 F) 02/23/2025 9:20 AM EDT Respiratory Rate 18 02/23/2025 9:20 AM EDT Oxygen Saturation 97% 02/23/2025 9:20 AM EDT Inhaled Oxygen Concentration - - Weight 68.6 kg (151 lb 3.2 oz) 02/23/2025 9:20 A M EDT Height 152.4 cm (5') 02/23/2025 9:20 AM EDT Body Mass Index 29.53 02/23/2025 9:20 AM EDT Plan of Treatment Upcoming Encounters Date Type Department Care Team ([facility] st Contact Info) Description 03/24/2025 9:30 AM EDT Office Visit Pulmonolgy - [place] 175 [facility] [address] [place] [address] Isi Flores MD 175 [facility] [address] [place] [address] Health Maintenance Due Date Last Done Comments Breast Cancer Screening 1955 DTaP,Tdap,and Td Vaccines (1 - Tdap) 1974 Colorectal Cancer Screening: Colonoscopy 07/16/2022 Falls Risk Assessment 07/16/2022 Hepatitis C Screening 07/16/2022 Medicare Annual Wellness Visit 07/16/2022 Osteoporosis Screening (Bone Density Screening) 07/16/2022 Social Influencers of Health Screening 07/16/2022 COVID-19 Vaccine ( season) 2024 01/10/2022, 05/31/2021, 10/28/2020, Additional history exists Depression Screening 08/13/2024 Influenza Vaccine (#1) 2025 , 05/22/2023, 05/11/2022, Additional history exists Pneumococcal Vaccine: 50+ Years Completed 05/25/2022 Zoster Vaccines Completed 01/14/2024, 10/01/2023 RSV Immunization Adult Patients Completed 09/23/2024 HIB Vaccines Aged Out No longer eligi ble based on patient's age to complete this topic HPV Vaccines Aged Out No longer eligi ble based on patient's age to complete this topic Hepatitis A Vaccines Aged Out No long er eligible based on patient's age to complete this topic Hepatitis B Vaccines Aged Out No long er eligible based on patient's age to complete this topic IPV Vaccines Aged Out No longer eligi ble based on patient's age to complete this topic MMR Vaccines Aged Out No longer eligi ble based on patient's age to complete this topic Meningococcal ACWY Vaccine Aged Out N o longer eligible based on patient's age to complete this topic Meningococcal B Vaccine Aged Out No l onger eligible based on patient's age to complete this topic RSV Immunization Patients Under 20 months Aged Out No longer eligible based on patient's age to complete this topic Varicella Vaccines Aged Out No longer eligible based on patient's age to complete this topic Procedures Procedure Name Priority Date/Time Associated Diagnosis Comments PULMONARY FUNCTION TESTING Routine 03/03/2025 9:22 AM EDT Moderate asthma, unspecified whether complicated, unspecified whether persistent from Last 3 Months Results * Pulmonary function testing: Carbon Monoxide Diffusing Capacity, Flow Volume Loop, Helium Dilution Lung Volumes, Spirometry with Bronchodilator, Spirometry, Vital Capacity Test (03/03/2025 9:22 AM EDT) Impressions Isi Flores MD - 03/03/2025 9:22 AM EDT Pulmonary function test interpretation. Spirometry reveals FEV1 of 1.89 which is 99% of the predicted value, FVC is 2.32 which is 92% of the predicted value, FEV1 to FVC ratio is 107% of the predicted value, there is no bronchodilator response. Flow volume is consistent with normal pattern. Static lung volumes are elevated [id number]. Diffusion lung capacity is elevated and and was normalized after correction for alveolar volume. This study is consistent with normal spirometry with air trapping and normal diffusion lung capacity, suggestive of normal pulmonary mechanics, however if diagnosis of asthma is in question suggest methacholine challenge test. Clinical correlation however is advised. us Isi Flores MD PFT ORDERABLES Final Result from Last 3 Months Insurance MEDICARE MEDICAID [place] Care Teams City Detective Relationship Specialty Start Date End Date Tosha Valdez MD [address] [place] [address] PCP - General Internal Medicine 02/12/25
[2025-03-09 11:02] LABS: Alanine Aminotransferase 27 U/L (0-31); Albumin Level 4.2 g/dL (3.5-5.0); Alkaline Phosphatase 71 U/L (39-117); Aspartate Amino Transferase 31 U/L (5-31); Cholesterol 157 mg/dL (<200); HDL Cholesterol 53 mg/dL (>40); Total Protein 7.0 g/dL (6.5-8.0); Triglycerides 116 mg/dL (<150)
== END 2025-03-09 08:38 | disposition home or self-care (01) ==
LOC: HO.HMGCLDS 08:37
PROVIDERS: PCP Internal Medicine; Visit Provider Internal Medicine
DX: E78.2 Mixed hyperlipidemia (principal); M85.89 Other specified disorders of bone density and structure, multiple sites
CPT/HCPCS: 36415; 80061; 80076; 82306

== ENCOUNTER 2025-03-10 11:22 | Outpatient (AMB) | payer MEDICARE, MEDICAID, SELFPAY ==
--- NOTE | 2025-03-10 11:54 | A.OFFPC_ITS ---
Vital Signs 03/10/25 11:59 Height 5 ft Weight 149 lb BMI 29.1 BP 120/86 Blood Pressure Location Lt brachial Position Sitting Pulse 79 Pulse Source Pulse Oximeter Pulse Oximetry (%) 97 Oxygen Delivery Method Room Air Intake Visit Reasons: 6 months f/up Allergies morphine Allergy (Unknown, Verified 03/10/25 12:14) hives enviromental allergies dust mi Allergy (Unknown, Uncoded 03/10/25 12:14) anaphylaxis enviromental:dust mites and tr Allergy (Unknown, Uncoded 03/10/25 12:14) anaphylaxis Medication List - Last Reconciled 03/10/25 by Tosha Valdez MD albuterol sulfate 90 mcg/actuation (Ventolin HFA) 1 inh inhalation QID PRN atorvastatin 10 mg PO DAILY diclofenac sodium 1% 2 grams transdermal BID PRN epinephrine (EpiPen 2-Demetris) 0.3 mg (0.3 mL) IM Q4H PRN fluticasone propionate 50 mcg/actuation intranasal milnacipran mg PO montelukast mg PO omeprazole mg PO oxybutynin chloride ER mg PO prochlorperazine maleate mg PO Tobacco use date assessed: 09/08/24 Fall risk assessment: No Falls in past year Last assessed Fall Risk: 03/10/25 Dental Screening Dental Screen Date: 09/08/24 HPI 6 months f/up HPI Details - The patient is a 69-year-old female pr esenting with a routine wellness check and management of chronic conditions. 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 - Vaccinations are current, including RS V, flu, pneumonia, shingles, and tetanus, with no significant adverse effects. - Liver function is normal, and choleste rol levels are well-managed with atorvastatin, with LDL at 81 mg/dL. - Vitamin D levels are sufficient at 95 ng/mL. - Heartburn is controlled with omeprazol e, and bladder leakage is managed with oxybutynin, prescribed by her urologist. - Allergy symptoms are managed with suresh hly injections, effective against dust mites and tree pollen. - Bone density scan shows thinning in th e hip and thigh regions. Encouraged to do regular weight-bearing exercise, take adequate calcium from dietary sources and advised to start taking qowv-[id number] vitamin D3 at 2000 units daily [facility] Medical History Breast calcification, left Environmental and seasonal allergies Headache Myalgia Osteopenia of multiple sites Tubular adenoma of colon Lumbar disc herniation Mixed dyslipidemia Mild intermittent asthma GERD (gastroesophageal reflux disease) Surgical History History of surgery History of myomectomy History of hand surgery History of tubal ligation History of appendectomy Hx of cholecystectomy Family History Father No problems noted. Mother CVD (cardiovascular disease) Brother No problems noted. Daughter No problems noted. Daughter No problems noted. Sister Stroke Sister Alzheimer's disease Sister Diabetes mellitus Leukemia Sister No problems noted. Sister No problems noted. Sister No problems noted. Sister No problems noted. Social History Housing: House Alcohol intake: never Patient Tobacco Use Status: Never used Tobacco e-Cigarette/Vaping Use: Never Used Second Hand Smoke Exposure: No service: No Current occupational status: retired Cognitive needs: No Hearing needs: No Vision needs: Yes Female Reproductive History Menstrual Age of Menarche: 11 Questionnaire PHQ-9 Over the last 2 weeks, how often have you been bothered by any of the following problems? 1. Little interest or pleasure in doing things: not at all 2. Feeling down, depressed, or hopeless: not at all 3. Trouble falling or staying asleep, or sleeping too much: not at all 4. Feeling tired or having little energy: not at all 5. Poor appetite or overeating: not at all 6. Feeling bad about yourself - or that you are a failure or have let yourself or your family down: not at all 7. Trouble concentrating on things, such as reading the newspaper or watching television: several days 8. Moving or speaking so slowly that other people could have noticed. Or the opposite - being so fidgety or restless that you have been moving around a lot more than usual: not at all 9. Thoughts that you would be better off or of hurting yourself in some way: not at all Total score: 1 Depression Screening Interpretation: Negative Depression Screening Done: Yes 04149 - PHQ-9 Billing: Yes Source: Developed by Drs. Zach Thurman, Akila Scott, Antony Miller and colleagues, with an educational temitope from [employer]. Thrive Questionnaire Date Thrive assessed: 03/10/25 I am a: Patient What is your living situation today?: I have a steady place to live Within the past 12 months, did the food you bought not last and you didn't have the money to get more?: Sometimes True Within the past 12 months, did you worry whether your food would run out before you got money to buy more?: Sometimes True Do you have trouble paying for medicines?: I choose not to answer this question Do you have trouble getting transportation to medical appointments?: No Do you have trouble paying your heating and electricity bill?: Yes Do you have trouble taking care of your child, family member or friend?: I choose not to answer this question Do you have trouble with day-to-day activities such as bathing, preparing meals, shopping, managing finances, etc.?: I choose not to answer this question Are you currently unemployed and looking for a job?: No Are you interested in more education?: No Please select the resources that you would like help with: None Currently or been in a relationship where the following occur: I choose not to answer THRIVE Score: 3 AUDIT C Alcohol Use Questionnaire (AUDIT-C) 1. How often do you have a drink containing alcohol?: Never 3. How often do you have six or more drinks on one occasion?: Never Total Score: 0 Score Reviewed/Action Taken: Yes JOANNE-7 AMB Questionnaire JOANNE-7 Date JOANNE - 7 assessed: 03/10/25 Feeling nervous, anxious, or on edge: 0 = Not at all Not being able to stop or control worryin = Not at all Worrying too much about different things: 0 = Not at all Trouble relaxin = Not at all Being so restless that it is hard to sit still: 0 = Not at all Becoming easily annoyed or irritable: 0 = Not at all Feeling afraid as if something awful might happen: 0 = Not at all Total JOANNE-7 score (0-4 normal; 5-9 mild; 10-14 moderate; 15-21 severe): 0 Source: Developed by Drs. Zach Thurman, Akila Scott, Antony Miller and colleagues, with an educational temitope from [employer]. JOANNE-7 Assessment Billing JOANNE-7 Assessment Tool: JOANNE-7 Assessment 63447 Review of Systems Const Denies chills and Denies fever(s) Eyes Reports no additional complaints ENT Reports no additional complaints Card Denies chest pain, Denies dyspnea and Denies dyspnea on exertion Resp Denies cough, Denies dyspnea and Denies dyspnea on exertion GI Denies hematochezia and Denies change in bowel habits Denies hematuria Musc Denies back pain and Denies limited range of motion Neuro Denies focal weakness and Denies convulsions Psych Denies depression and Denies mood swings Endo Reports no additional complaints Osvaldo/Lymph Reports no additional complaints Aller/Immun Reports no additional complaints Physical exam (Primary Care) Vital Signs: Last Vital Signs Pulse 79 03/10/25 11:59 BP 120/86 03/10/25 11:59 Pulse Ox 97 03/10/25 11:59 Oxygen Delivery Method Room Air 03/10/25 11:59 BMI result Body Mass Index 29.1 Tobacco/Smoking Status: Tobacco use Status Tobacco use date assessed 09/08/24 03/10/25 11:54 Patient Tobacco Use Status Never used Tobacco 03/10/25 11:54 e-Cigarette/Vaping Use Never Used 03/10/25 11:54 PHQ-9: PHQ-9 Score PHQ-9: Total score 1 03/10/25 12:25 Depression Screening Interpretation: Negative Thrive Assessment: Date of Thrive Assessment Date Thrive assessed 03/10/25 03/10/25 12:01 Currently or been in a relationship where the following occur: I choose not to answer Const General: cooperative, comfortable and no acute distress Orientation/consciousness: patient oriented x3 Limitations: no limitations HENMT Head: Yes normocephalic Ears: external ears normal General nose exam: Normal external nose present Face and sinus: Yes face symmetric Mouth: Normal oral and palatal mucosa present and moist mucous membranes Eyes General: appearance normal, both eyes and all related structures Neck Neck: Yes full ROM, Yes no lymphadenopathy and Yes supple Chest Breast/axilla palpation: normal palpation of the breasts Resp Effort & Inspection: normal respiratory effort and able to speak in complete sentences Auscultation: clear to auscultation bilaterally Cardio Rate: regular rate Rhythm: regular rhythm Heart sounds: S1 normal heart sound present and S2 normal heart sound present GI Inspection: Yes normal to inspection Palpation (GI): Soft to palpation and nontender Auscultation: normal bowel sounds General: Yes no CVA tenderness Back/Spine/Pelvis Back: no CVA tenderness and No back tenderness Skin General skin exam: no rashes or lesions noted Neuro General: patient oriented x3, gait normal, tone normal, moves all extremities, Normal light touch and pain sensation and no focal motor deficits Cognition (Neuro): normal cognition Gait exam (Neuro): Normal gait present Motor exam (neuro): 5/5 motor strength present throughout Extrem General: Yes full ROM, Yes no joint enlargement, Yes no pedal edema, Yes no calf tenderness and Yes normal gait Psych Appearance: grossly normal and well kempt Mental Status: mental status grossly normal Speech and movement: Normal speech and movement present Affect: normal affect Results Reviewed Results Reviewed: Name: Chelle Dugan Age/Sex: 69/F : 1955 Unit#: [id number] Attend Dr: Tosha Valdez MD Re03/09/25 Status: DEP REF Location: [facility] Disch: SPEC : [id number] GAETANO: 03/09/25 STATUS: COMP REQ : [id number] RECD: 03/09/25-[address]: Tosha Valdez MD COMP: 03/09/254 ENTERED: 03/09/[address] [facility] [address]: ORDERED: Liver Panel, Lipid Panel, Vitamin D 25-OH Test Result Flag Reference Total Bili 0.7 0.0-1.0 mg/dL Direct Bili 0.2 0.0-0.5 mg/dL AST (GOT) 31 5-31 U/L ALT (GPT) 27 0-31 U/L Protein, Total 7.0 6.5-8.0 g/dL Alb 4.2 3.5-5.0 g/dL Triglyceride 116 <150 mg/dL Desirable Triglyceride: less than 150 mg/dL Borderline High Triglyceride 150-199 mg/dL High Triglyceride: 200-499 mg/dL Very High Triglyceride: greater than or equal to 5OO mg/dL mm Cholesterol 157 <200 mg/dL Desirable Cholesterol: less than 200 mg/dL Borderline High Cholesterol: 200-239 mg/dL High Cholesterol: greater than 239 mg/dL LDL Calculated 81 <100 mg/dL Desirable LDL: less than 100 mg/dL Near Optimal/Above Optimal LDL: 110-129 mg/dL Borderline High LDL: 130-159 mg/dL High LDL: 160-189 mg/dL Very High LDL: greater than or equal to 190 mg/dL HDL 53 >40 mg/dL Desirable HDL: greater than 40 mg/dL Note: This HDL assay may give artificially low results in patients with liver disease. Alk Phos 71 39-117 U/L Vitamin D 25-OH 95.0 >30 ng/mL Health Based Reference Values* < 20 ng/mL Deficient 20-30 ng/mL Insufficient > 30 ng/mL Sufficient Coding Level of Care Code Est Pt Level 4 (96918) Diagnoses Osteopenia of multiple sites M85.89 Mixed dyslipidemia E78.2 GERD (gastroesophageal reflux disease) K21.9 Environmental and seasonal allergies J30.89 Additional Codes JOANNE-7 Assessment Billing - JOANNE-7 Assessment Tool: JOANNE-7 Assessment 73925 ([id number]) PHQ-9 - 86367 - PHQ-9 Billing: Yes ([id number]) Assessment & Plan Assessment & Plan (1) Osteopenia of multiple sites: Code(s): M85.89 - Other specified disorders of bone density and structure, multiple sites Category: Medical (2) Mixed dyslipidemia: Code(s): E78.2 - Mixed hyperlipidemia Category: Medical (3) GERD (gastroesophageal reflux disease): Code(s): K21.9 - Gastro-esophageal reflux disease without esophagitis Category: Medical (4) Environmental and seasonal allergies: Comment: Sees Dr. Briseno, gets allergy shots once a month Code(s): J30.89 - Other allergic rhinitis Category: Medical Plan The patient will maintain her current medications, including atorvastatin, omeprazole, and oxybutynin, and continue monthly allergy injections. A follow-up bone density scan is advised to monitor bone thinning. She should remain active and ensure vaccinations are current. The patient is encouraged to report any new symptoms or changes. Patient was informed and verbally consented to the use of an ambient scribe for clinic note documentation during this visit. Orders: Orders XR DEXA axial skeleton 03/10/25 M85.89 - Other specified disorders of bone density and structure, multiple sites
[2025-03-10 11:59] VITALS: BP 120/86; PULSE 79; O2SAT 97; BMI 29.1
--- OUTSIDE RECORDS SUMMARY | 2025-03-10 12:34 | XMS_ITS | Clinical Summary ---
Author Organization 175 [facility] Address [address] [place] [address] Phone Care Team Providers Care Sound Printer Name Role Phone Tosha Valdez MD Primary Care Provider Allergies Active Allergy Reactions Criticality Noted Date [...] Description 03/03/2025 9:00 AM EDT Ancillary Procedure Pul[address] [phone] Moderate asthma, unspecified whether complicated, unspecified whether persistent 02/23/2025 9:30 AM EDT [facility] [address] [phone] Isi Flores MD Moderate asthma, unspecified whether complicated, unspecified whether persistent (Primary Dx) 02/12/2025 2:30 PM EDT Office Visit Pul[address] [phone] Isi Flores MD Upper respiratory tract infection, [...] Upcoming Encounters Date Type Department Care Team ([facility] Contact Info) Description 03/31/2025 9:45 AM EDT Office Visit Pulmonolgy - [place] [address] [facility] [address] [place] [address] Isi Flores MD 175 [facility] [address] [place] [address] Health Maintenance Due Date Last Done Comments [...] normal pattern. Static lung volumes are elevated [id number]. Diffusion lung capacity is elevated and and [...] Insurance MEDICARE MEDICAID [place] Care Teams Sound Printer Relationship Specialty Start Date End Date Tosha Valdez MD [address] [place] [address] PCP - General Internal Medicine 02/12/25
== END 2025-03-10 12:46 | disposition home or self-care (01) ==
LOC: HO.HMCC 11:23
PROVIDERS: PCP Internal Medicine; Visit Provider Internal Medicine
DX: M85.89 Other specified disorders of bone density and structure, multiple sites (principal); E78.2 Mixed hyperlipidemia; K21.9 Gastro-esophageal reflux disease without esophagitis; J30.89 Other allergic rhinitis

== ENCOUNTER → 2025-03-10 11:22 | Outpatient (BNVA) | payer MEDICARE, MEDICAID, SELFPAY | PROVIDERS: PCP Internal Medicine; Visit Provider Internal Medicine | DX: M85.89 Other specified disorders of bone density and structure, multiple sites (principal); E78.2 Mixed hyperlipidemia; K21.9 Gastro-esophageal reflux disease without esophagitis; J30.89 Other allergic rhinitis | CPT/HCPCS: 96127; 99212 ==

== ENCOUNTER 2025-04-15 13:55 | Outpatient (REF) | payer MEDICARE, MEDICAID, SELFPAY ==
--- NOTE | ~2025-04-15 | MM_ITS ---
EXAMINATION: MM DIAGNOSTIC DIGITAL MAMMOGRAPHY, LEFT CLINICAL INFORMATION: Recent left benign breast biopsy of calcifications in the upper outer quadrant. 6 month follow-up recommended to follow grouped calcifications in the lower outer left breast. COMPARISON: Mammography: [facility] on PACS. TECHNIQUE: Digital mammography is performed in craniocaudal and mediolateral oblique views along with computer-aided detection (CAD). FINDINGS: There are scattered areas of fibroglandular density (ACR BI-RADS breast composition Category b). Grouped coarse heterogeneous calcifications in the lower outer quadrant are not significantly changed from prior magnification views. Marker clip in the upper outer breast from previous recent needle core biopsy. No suspicious masses or other abnormal findings. Results are provided to the patient at time of visit by the technologist. MM/MM diagnostic mammo unilat LT IMPRESSION: Left: Grouped coarse heterogeneous calcifications in the lower outer breast are not significantly changed from prior magnification views. Recommend six-month follow-up with medication views when the patient will be due for bilateral mammography to demonstrate 1 year of stability. ASSESSMENT: BI-RADS BI-RADS 3 - Probably benign finding(s) - 6 month follow-up suggested RECOMMENDATION: 6 Month F/U This patient's information was entered into a reminder system with a target due date for their next mammogram. Electronically signed by: Stefani Price DO 04/15/2025 02:43 PM EDT
--- OUTSIDE RECORDS SUMMARY | 2025-04-15 16:09 | XMS_ITS | Clinical Summary ---
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 5 Active fluticasone-ume clidinium-vilan terol (Trelegy Ellipta) 100-62.5-25 mcg inhaler Inhale 1 puff (100 mcg total) by mouth 1 (one) time each day. Rinse mouth with water after use to reduce aftertaste and incidence of candidiasis. Do not swallow. 180 each 3 5 03/31/20 26 Active Active Problems Problem Noted Date Diagnosed Date Cough 02/11/2025 URI (upper respiratory infection) 02/11/2025 Encounters Date Type Department Care Team Description 03/31/2025 9:45 AM EDT Office Visit [address] [phone] Isi Flores MD Pulmonary emphysema, unspecified emphysema type (CMS/HCC V24, CMS/HCC V28) (Primary Dx); Chronic cough 03/03/2025 9:00 AM EDT Ancillary Procedure [address] [phone] Moderate asthma, unspecified whether complicated, unspecified whether persistent 02/23/2025 9:30 AM EDT Office Visit [address] [phone] Isi Flores MD Moderate asthma, unspecified whether complicated, unspecified whether persistent (Primary Dx) 02/12/2025 2:30 PM EDT Office Visit [address] [phone] Isi Flores MD Upper respiratory tract infection, unspecified type (Primary Dx); Bronchitis; Moderate asthma, unspecified whether complicated, unspecified whether persistent from Last 3 Months Social History Tobacco Use Types Packs/Day Years Used Date Smoking Tobacco: Never Passive Smoke Exposure: Never Smokeless Tobacco: Never Comments Unknown Sex and Gender Information Value Date Recorded Sex Assigned at Female 03/31/2025 9:48 PM EDT Legal Sex Female 5:43 AM EST Gender Identity Not on file Sexual Orientation Not on file Obstetrics History Last Filed Vital Signs Vital Sign Reading Time Taken Comments Blood Pressure 120/79 03/31/2025 9:49 AM EDT Pulse 64 03/31/2025 9:49 AM EDT Temperature 36.6 C (97.9 F) 03/31/2025 9:49 AM EDT Respiratory Rate 18 02/23/2025 9:20 AM EDT Oxygen Saturation 100% 03/31/2025 9:49 AM EDT Inhaled Oxygen Concentration - - Weight 68.6 kg (151 lb 3.2 oz) 03/31/2025 9:49 A M EDT Height 152.4 cm (5') 03/31/2025 9:49 AM EDT Body Mass Index 29.53 03/31/2025 9:49 AM EDT Plan of Treatment Upcoming Encounters Date Type Department Care Team (Late st Contact Info) Description 04/17/2025 7:30 AM EDT Appointment [facility] CT Scan [address] [place] [phone] 05/11/2025 8:30 AM EDT Office Visit Pulmonolgy - [facility] [address] [facility] [address] [place] [phone] Isi Flores MD [address] [place] [phone] Health Maintenance Due Date Last Done Comments Breast Cancer Screening 1955 DTaP,Tdap,and Td Vaccines (1 - Tdap) 1974 Colorectal Cancer Screening: Colonoscopy 07/16/2022 Falls Risk Assessment 07/16/2022 Hepatitis C Screening 07/16/2022 Medicare Annual Wellness Visit 07/16/2022 Osteoporosis Screening (Bone Density Screening) 07/16/2022 Social Influencers of Health Screening 07/16/2022 Depression Screening 08/13/2024 COVID-19 Vaccine ( season) 2025 01/10/2022, 05/31/2021, 10/28/2020, Additional history exists Influenza Vaccine (#1) 2025 , 05/22/2023, 05/11/2022, [...] Procedure Name Priority Date/Time Associated Diagnosis Comments CBC WITH AUTO DIFFERENTIAL Routine 03/31/2025 10:11 AM EDT Pulmonary emphysema, unspecified emphysema type ([facility] V24, [facility] V28) CBC AND DIFFERENTIAL Routine 03/31/2025 10:11 AM EDT Pulmonary emphysema, unspecified emphysema type ([facility] V24, [facility] V28) IMMUNOGLOBULINS IGG, IGA, IGM, IGE Routine 03/31/2025 10:11 AM EDT Pulmonary emphysema, unspecified emphysema type ([facility] V24, [facility] V28) PULMONARY FUNCTION TESTING Routine 03/03/2025 9:22 AM EDT Moderate asthma, unspecified whether complicated, unspecified whether persistent from Last 3 Months Results * (ABNORMAL) Immunoglobulins IgG, IgA, IgM, IgE (03/31/2025 10:11 AM EDT) Total IgG 1,440 549 - 1,584 mg/dL LAB CHEMISTRY METHOD 03/31/2025 4:36 PM EDT [facility] IgA 268 61 - 348 mg/dL LAB CHEMISTRY METHOD 03/31/2025 4:36 PM EDT [facility] IgM 126 23 - 259 mg/dL LAB CHEMISTRY METHOD 03/31/2025 4:36 PM [facility] IgE 273.1(H) 0.0 - 158.0 I Unit/mL LAB CHEMISTRY METHOD 03/31/2025 4:36 PM [facility] Blood Venous blood specimen / Unknown Venipuncture / Unknown 03/31/2025 10:11 AM EDT 03/31/2025 10:11 AM EDT us Isi Flores MD LAB BLOOD ORDERABLES Final R esult [facility] [address] [place] [address], [place] [phone] * (ABNORMAL) CBC auto differential (03/31/2025 10:11 AM EDT) [facility] WBC 4.6(L) 4.8 - 10.8 K/mcL LAB HEMETOLOGY METHOD 03/31/2025 2:24 PM EDT [facility] RBC 4.70 3.80 - 4.80 M/mcL LAB HEMETOLOGY METHOD 03/31/2025 2:24 PM EDT [facility] Hemoglobin 13.7 11.5 - 16.0 g/dL LAB HEMETOLOGY METHOD 03/31/2025 2:24 PM EDT [facility] Hematocrit 42.0 35.0 - 47.0 % LAB HEMETOLOGY METHOD 03/31/2025 2:24 PM EDT [facility] MCV 89.4 79.0 - 98.0 FL LAB HEMETOLOGY METHOD 03/31/2025 2:24 PM EDT [facility] MCH 29.1 27.0 - 32.0 pcg LAB HEMETOLOGY METHOD 03/31/2025 2:24 PM EDT [facility] MCHC 32.6 32.0 - 37.0 g/dL LAB HEMETOLOGY METHOD 03/31/2025 2:24 PM EDT [facility] RDW 13.5 11.0 - 15.0 % LAB HEMETOLOGY METHOD 03/31/2025 2:24 PM EDT [facility] Platelets 372 130 - 400 K/mcL LAB HEMETOLOGY METHOD 03/31/2025 2:24 PM EDT [facility] MPV 10.0 7.0 - 11.0 FL LAB HEMETOLOGY METHOD 03/31/2025 2:24 PM EDT [facility] NRBC 0.0 <1.0 % LAB HEMETOLOGY METHOD 03/31/2025 2:24 [facility] NRBC Absolute 0.00 <0.10 K/mcL LAB HEMETOLOGY METHOD 03/31/2025 2:24 PM EDT [facility] Neutrophils Relative 32.1 % LAB HEMETOLOGY METHOD 03/31/2025 2:24 PM EDT [facility] Lymphocytes Relative 44.0 % LAB HEMETOLOGY METHOD 03/31/2025 2:24 PM [facility] Monocytes Relative 8.3 % LAB HEMETOLOGY METHOD 03/31/2025 2:24 PM [facility] Eosinophils Relative 13.7 % LAB HEMETOLOGY METHOD 03/31/2025 2:24 PM [facility] Basophils Relative 1.7 % LAB HEMETOLOGY METHOD 03/31/2025 2:24 PM [facility] Immature Granulocytes Relative 0.2 % LAB HEMETOLOGY METHOD 03/31/2025 2:24 PM [facility] Neutrophils Absolute 1.47(L) 1.50 - 7.00 K/mcL LAB HEMETOLOGY METHOD 03/31/2025 2:24 PM EDT [facility] Lymphocytes Absolute 2.02 1.00 - 5.00 K/mcL LAB HEMETOLOGY METHOD 03/31/2025 2:24 [facility] Monocytes Absolute 0.38 0.20 - 1.00 K/mcL LAB HEMETOLOGY METHOD 03/31/2025 2:24 PM [facility] Eosinophils Absolute 0.63(H) 0.00 - 0.50 K/mcL LAB HEMETOLOGY METHOD 03/31/2025 2:24 PM EDT [facility] Basophils Absolute 0.08 0.00 - 0.20 K/mcL LAB HEMETOLOGY METHOD 03/31/2025 2:24 PM EDT [facility] Immature Granulocytes Absolute 0.01 0.00 - 0.03 K/mcL LAB HEMETOLOGY METHOD 03/31/2025 2:24 PM EDT [facility] Blood Venous blood specimen / Unknown Venipuncture / Unknown 03/31/2025 10:11 AM EDT 03/31/2025 10:11 AM EDT us Isi Flores MD LAB BLOOD ORDERABLES Final R esult [facility] [address] [place] [address], [place] [phone] * Pulmonary function testing: Carbon Monoxide Diffusing [...] normal pattern. Static lung volumes are elevated [id number]. 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
== END 2025-04-15 13:56 | disposition home or self-care (01) ==
LOC: HO.MAMMO 13:55
PROVIDERS: Visit Provider Surgery
DX: R92.1 Mammographic calcification found on diagnostic imaging of breast (principal)
CPT/HCPCS: 77062; 77065

== ENCOUNTER → 2025-04-15 14:30 | Outpatient (BNV) | payer MEDICARE, MEDICAID, SELFPAY | PROVIDERS: Visit Provider Internal Medicine | DX: R92.1 Mammographic calcification found on diagnostic imaging of breast (principal) | CPT/HCPCS: 77065 ==

== ENCOUNTER 2025-06-02 11:06 | Outpatient (AMB) | payer MEDICARE, MEDICAID, SELFPAY ==
[2025-06-02 11:13] VITALS: BP 142/84; PULSE 92; RESP 16; TEMP 36.9; O2SAT 99; BMI 29.7
--- NOTE | 2025-06-02 11:13 | A.OFFPC_ITS ---
Vital Signs 06/02/25 11:13 06/02/25 11:30 Height 5 ft Weight 152 lb BMI 29.7 BP 142/84 H 120/85 Blood Pressure Location Rt brachial Rt brachial Position Sitting Sitting Respiration 16 Pulse 92 Pulse Source Pulse Oximeter Temp 98.4 F Temp Source Oral Pulse Oximetry (%) 99 Intake Visit Reasons: Fibromyalgia/myalgia Intake Note: Pt is here today c/o fibromyaliga/myalgia Allergies morphine Allergy (Unknown, Verified 06/02/25 11:26) hives enviromental allergies dust mi Allergy (Unknown, Uncoded 06/02/25 11:26) anaphylaxis enviromental:dust mites and tr Allergy (Unknown, Uncoded 06/02/25 11:26) anaphylaxis Medication List - Last Reconciled 06/02/25 by Tosha Valdez MD albuterol sulfate 90 mcg/actuation (Ventolin HFA) 1 inh inhalation QID PRN atorvastatin 10 mg PO DAILY diclofenac sodium 1% 2 grams transdermal BID PRN epinephrine (EpiPen 2-Demetris) 0.3 mg (0.3 mL) IM Q4H PRN fluticasone propionate 50 mcg/actuation intranasal stbyduvawuf-muwgwsbpu-mezwontf 100-62.5-25 mcg (Trelegy Ellipta) 1 inh inhalation DAILY montelukast mg PO omeprazole mg PO oxybutynin chloride ER mg PO prochlorperazine maleate mg PO Tobacco use date assessed: 06/02/25 Fall risk assessment: No Falls in past year Last assessed Fall Risk: 06/02/25 Dental Screening Dental Screen Date: 06/02/25 Did you have a dental visit in the last 12 months?: Yes Did you have a dental problem in the last 6 months where you did not have access to dental care?: No Was dental information given to patient?: Patient has dentist HPI Fibromyalgia/myalgia HPI Details 69-year-old lady here today complaining of widespread muscle pain, present in posterior neck, over bilateral trapezius, elbows, bilateral lower back and lateral aspects of both hips and knees, which has been present now for the last several years. She has been diagnosed to have fibromyalgia by her neurologist, Dr. Cole who has now retired, who placed her on Savella 50 mg once a day which has been helping. Patient has already tried gabapentin, Lyrica, Celebrex, NSAIDs all of which were ineffective. Patient however states that she has not been able to get the medicine now as her neurologist has retired and at that time her insurance was not covering it anymore. She would also like a referral to see a butcher assistant. [facility] Medical History Breast calcification, left Environmental and seasonal allergies Headache Myalgia Osteopenia of multiple sites Tubular adenoma of colon Lumbar disc herniation Mixed dyslipidemia Mild intermittent asthma GERD (gastroesophageal reflux disease) Surgical History History of surgery History of myomectomy History of hand surgery History of tubal ligation History of appendectomy Hx of cholecystectomy Family History Father No problems noted. Mother CVD (cardiovascular disease) Brother No problems noted. Daughter No problems noted. Daughter No problems noted. Sister Stroke Sister Alzheimer's disease Sister Diabetes mellitus Leukemia Sister No problems noted. Sister No problems noted. Sister No problems noted. Sister No problems noted. Social History Housing: House Alcohol intake: never Patient Tobacco Use Status: Never used Tobacco e-Cigarette/Vaping Use: Never Used Second Hand Smoke Exposure: No service: No Current occupational status: retired Cognitive needs: No Hearing needs: No Vision needs: Yes Female Reproductive History Menstrual Age of Menarche: 11 Questionnaire PHQ-9 Over the last 2 weeks, how often have you been bothered by any of the following problems? 1. Little interest or pleasure in doing things: not at all 2. Feeling down, depressed, or hopeless: not at all 3. Trouble falling or staying asleep, or sleeping too much: not at all 4. Feeling tired or having little energy: not at all 5. Poor appetite or overeating: not at all 6. Feeling bad about yourself - or that you are a failure or have let yourself or your family down: not at all 7. Trouble concentrating on things, such as reading the newspaper or watching television: several days 8. Moving or speaking so slowly that other people could have noticed. Or the opposite - being so fidgety or restless that you have been moving around a lot more than usual: not at all 9. Thoughts that you would be better off or of hurting yourself in some way: not at all Total score: 1 Depression Screening Interpretation: Negative Depression Screening Done: Yes Source: Developed by Drs. Zach Thurman, Akila Scott, Antony Miller and colleagues, with an educational temitope from [employer]. Thrive Questionnaire Date Thrive assessed: 09/08/24 I am a: Patient What is your living situation today?: I have a steady place to live Within the past 12 months, did the food you bought not last and you didn't have the money to get more?: Sometimes True Within the past 12 months, did you worry whether your food would run out before you got money to buy more?: Sometimes True Do you have trouble paying for medicines?: I choose not to answer this question Do you have trouble getting transportation to medical appointments?: No Do you have trouble paying your heating and electricity bill?: Yes Do you have trouble taking care of your child, family member or friend?: I choose not to answer this question Do you have trouble with day-to-day activities such as bathing, preparing meals, shopping, managing finances, etc.?: I choose not to answer this question Are you currently unemployed and looking for a job?: No Are you interested in more education?: No Please select the resources that you would like help with: None Currently or been in a relationship where the following occur: I choose not to answer THRIVE Score: 3 JOANNE-7 AMB Questionnaire JOANNE-7 Date JOANNE - 7 assessed: 03/10/25 Feeling nervous, anxious, or on edge: 0 = Not at all Not being able to stop or control worryin = Not at all Worrying too much about different things: 0 = Not at all Trouble relaxin = Not at all Being so restless that it is hard to sit still: 0 = Not at all Becoming easily annoyed or irritable: 0 = Not at all Feeling afraid as if something awful might happen: 0 = Not at all Total JOANNE-7 score (0-4 normal; 5-9 mild; 10-14 moderate; 15-21 severe): 0 Source: Developed by Drs. Zach Thurman, Akila Scott, Antony Miller and colleagues, with an educational temitope from [employer]. Review of Systems Const All systems reviewed & are unremarkable except as noted in HPI and below Physical exam (Primary Care) Vital Signs: Last Vital Signs Temp 98.4 F 06/02/25 11:13 Pulse 92 06/02/25 11:13 Resp 16 06/02/25 11:13 BP 142/84 H 06/02/25 11:13 Pulse Ox 99 06/02/25 11:13 BMI result Body Mass Index 29.7 Tobacco/Smoking Status: Tobacco use Status Tobacco use date assessed 06/02/25 06/02/25 11:19 Patient Tobacco Use Status Never used Tobacco 06/02/25 11:19 e-Cigarette/Vaping Use Never Used 06/02/25 11:19 PHQ-9: PHQ-9 Score PHQ-9: Total score 1 06/02/25 11:36 Depression Screening Interpretation: Negative Thrive Assessment: Date of Thrive Assessment Date Thrive assessed 09/08/24 06/02/25 11:19 Currently or been in a relationship where the following occur: I choose not to answer Const General: no acute distress Orientation/consciousness: patient oriented x3 HENMT Head: Yes normocephalic Ears: external ears normal General nose exam: Normal external nose present Face and sinus: Yes face symmetric Mouth: Normal oral and palatal mucosa present and moist mucous membranes Eyes General: appearance normal, both eyes and all related structures Neck Neck: Yes full ROM, Yes no lymphadenopathy and Yes supple Resp Effort & Inspection: normal respiratory effort and able to speak in complete sentences Auscultation: clear to auscultation bilaterally Cardio Rate: regular rate Rhythm: regular rhythm Heart sounds: S1 normal heart sound present and S2 normal heart sound present GI Inspection: Yes normal to inspection Palpation (GI): Soft to palpation and nontender Auscultation: normal bowel sounds Back/Spine/Pelvis Other: Tenderness on palpation over paraspinal muscle at cervical area, over bilateral trapezius, interscapular area, lateral epicondylar area bilateral, bilateral SI notch, lateral aspect of both hip and lateral aspects of both knees. Skin General skin exam: no rashes or lesions noted Neuro General: patient oriented x3, gait normal, tone normal, moves all extremities, Normal light touch and pain sensation and no focal motor deficits Cognition (Neuro): normal cognition Gait exam (Neuro): Normal gait present Motor exam (neuro): 5/5 motor strength present throughout Extrem General: Yes full ROM, Yes no joint enlargement, Yes no pedal edema, Yes no calf tenderness and Yes normal gait Psych Appearance: grossly normal and well kempt Mental Status: mental status grossly normal Speech and movement: Normal speech and movement present Affect: normal affect Coding Level of Care Code Est Pt Level 4 (26774) Diagnoses Myalgia M79.10 Assessment & Plan Assessment & Plan (1) Myalgia: Code(s): M79.10 - Myalgia, unspecified site Category: Medical Plan: She has been diagnosed to have fibromyalgia in the past by her neurologist and previously was on Savella, a prescription was sent for Savella or its generic equivalent if available for 50 mg to take once a day. Referral to Rheumatology ordered. Advised to do stretching exercises and staying active. Orders: Referrals Rheumatology Referral M79.10 - Myalgia, unspecified site Medications: New milnacipran (Savella) 50 mg PO DAILY 30 tabs 3RF
[2025-06-02 11:30] VITALS: BP 120/85
== END 2025-06-02 11:46 | disposition home or self-care (01) ==
LOC: HO.HMCC 11:07
PROVIDERS: Visit Provider Internal Medicine
DX: M79.10 Myalgia, unspecified site (principal)

== ENCOUNTER → 2025-06-02 11:06 | Outpatient (BNVA) | payer MEDICARE, MEDICAID, SELFPAY | PROVIDERS: Visit Provider Internal Medicine | DX: M79.7 Fibromyalgia (principal) | CPT/HCPCS: 96127; 99212 ==